=== PATIENT | male | born 1980 | race Caucasian/White ===

== ENCOUNTER → 2017-05-25 08:13 | Outpatient (CLI) | payer MEDICAID, SELFPAY ==
[2017-05-25 10:02] LABS: ALB/GLOB Ratio 1.2 RATIO (0.9-2.4); AST(SGOT) 27 U/L (15-37); Alanine Aminotransfer ALT/SGPT 28 U/L (16-61); Albumin, Serum 4.4 g/dL (3.2-5.0); Alkaline Phosphatase 59 U/L (45-117); Anion Gap 10 (5-15); BUN 12 mg/dL (7-18); BUN/Creat Ratio 10.8 RATIO (10-20); Calcium,Total 8.8 mg/dL (8.5-10.1); Chloride 107 mmol/L (98-107); Creatinine, Serum 1.11 mg/dL (0.70-1.30); EST Glomerular Filtration Rate 80 mL/min (>60); Est Glom Filt Rate - Afr Amer 97 mL/min (>60); Globulin 3.6 g/dL (2.2-4.2); Glucose 83 mg/dL (74-106); Potassium 4.5 mmol/L (3.5-5.1); Sodium Level 140 mmol/L (136-145)
[2017-05-26 04:15] LABS: HEPATITIS B SURFACE AG Negative (Negative); Hepatitis A AB, Total Negative (Negative); Hepatitis A IgM Antibody Negative (Negative); Hepatitis B Core AB IgM Negative (Negative); Hepatitis B Core Ab Total Negative (Negative); Hepatitis C Ab <0.1 s/co ratio (0.0-0.9)
[2017-05-26 09:23] LABS: Hep B Surface Antibodies Non Reactive (.)
== END ==
PROVIDERS: Family Provider Nurse Practitioner Family; PCP Nurse Practitioner Family; Visit Provider Nurse Practitioner Family
DX: R79.89 Other specified abnormal findings of blood chemistry (principal); E87.6 Hypokalemia; F10.20 Alcohol dependence, uncomplicated
CPT/HCPCS: 36415; 80053; 86704; 86705; 86706; 86708; 86709; 86803; 87340

== ENCOUNTER 2018-02-20 17:31 | Emergency (ER) | payer OTHER, BC, SELFPAY ==
[2018-02-20 17:32] VITALS: BP 146/95; PULSE 89; RESP 16; TEMP 36.6; O2SAT 100; BMI 21.5
[2018-02-20] MEDS: HYDROcodone Bitartrate/Apap 5/325 Tablet PO (18:46)
[2018-02-20 18:47] VITALS: PULSE 67; RESP 14; O2SAT 100
--- NOTE | 2018-02-20 18:55 | RAD_ITS ---
STUDY: X-RAY - UNILATERAL RIBS ( RIGHT ) WITH CHEST REASON FOR EXAM: Male, 37 years old. Right rib injury. TECHNIQUE - RIBS: 4 view(s) of the ribs. TECHNIQUE - CHEST: 1 COMPARISON: None. FINDINGS - RIBS: There is an acute, minimally displaced fracture of the right lateral fourth rib. FINDINGS - CHEST: Heart size is normal. Hilar and mediastinal shadows are unremarkable. There is no pleural effusion, pulmonary consolidation, or pneumothorax. RAD/Ribs Uni Min 3V w/PA Chest IMPRESSION: RIBS: Acute fracture of the right fourth rib. CHEST: Normal x-ray examination of the chest. Electronically Signed: Shonda Cueto MD at 19:23 EST Tel , Service support ,
--- NOTE | 2018-02-20 19:37 | ED.DCSUM_ITS ---
- ER Visit Summary Date of Service: 02/20/18 Chief Complaint: Rib pain History of Present Illness: The patient is a 37 M presents to the emergency department rib pain. The patient states that he injured himself at work a few days ago. He states that he got moved to a new job today. He was lifting a heavy piece of machinery at work and felt something pop in his right chest. Since then, he is been having increasing pain. He states it hurts to move and twist. He states he is never had pain like this before. He is not had any other trauma. He is been taking ibuprofen with little relief. Physical Examination: Vital signs reviewed General: Well-nourished, well-developed Head: Normocephalic, atraumatic Eyes: Pupils equal and reactive, extraocular muscles intact Neck, supple, no lymphadenopathy Heart: Regular rate and rhythm Respiratory: No distress, clear bilaterally, tenderness over the right lateral ribs at the fourth or fifth without step-off Abdomen: Soft, nontender, nondistended, no peritoneal signs Back: Nontender Extremities: Nontender, no edema, no cords Skin: Normal color no rash Neuro: Alert and oriented, no focal or lateralizing deficits Test Results: [] Emergency Department Course and Treatment: Patient presents to the emergency department rib pain after lifting. He is tender, but has no crepitus or step- off. He was given oral analgesics. X-rays do demonstrate an acute displaced right fourth rib fracture. There is no pneumothorax. At this time, I do feel the patient is safe for outpatient follow-up. He will be given analgesics. He will be placed on work restrictions. He will follow-up with [facility].] Treatment Plan: [] Disposition: Discharge Impression: 1. Acute right fourth rib fracture This note was generated with [employer] dictation software. It may contain incorrect words, spelling, and punctuation that were not noted in review of the chart prior to signing ED Disposition - Plan for ED Patient: Chief Complaint: Chest Other Instructions: ED Fx Rib Prescriptions: Hydrocodone Bitart/Apap 5-325 [[place] 5MG-325MG] 1 tab PO Q6H PRN PRN 3 Days #10 tab PRN Reason: Pain Referrals: [facility] [[facility] OF PHYSICIANS] -
--- OUTSIDE RECORDS SUMMARY | 2018-05-25 06:18 | XMS RPT_ITS ---
:1980 Author Organization OHIP Care Team Providers Name Role Phone Alber Hernandez [facility] Primary Care Unavailable Matt Melendez Attending Unavailable Alber Hernandez [facility] Attending Unavailable Alber Hernandez [facility] Referring Unavailable Alber Hernandez [facility] Primary Care Unavailable Alber Hernandez [facility] Attending Unavailable Thais Jesus Referring Unavailable Alber Hernandez [facility] Primary Care Unavailable Alber Hernandez [facility] Attending Unavailable Corniello, Estrella [facility] Referring Unavailable Alber Hernandez NP-Jessa Attending Unavailable Alber Hernandez NP-Jessa Primary Care Unavailable PROBLEMS PROBLEMS DATE TYPE CONDITION / CODE ATTENDING STATUS SOURCE 02/20/2018 Unknown S22.39XA - Fracture Matt Melendez Active [place] of one rib, Community unspecified side, Hospital initial encounter Repository for closed fracture / S22.39XA(ICD-10) 06/27/2017 Unknown D53.9 - Nutritional Hernandez, Alber Active [place] anemia, unspecified [facility] Community / D53.9(ICD-10) Hospital Repository 06/27/2017 Unknown F10.20 - Alcohol Hernandez, Alber Active [place] dependence, [facility] Community uncomplicated / Hospital F10.20(ICD-10) Repository 06/27/2017 Unknown F32.9 - Major HernandezAlber Active [place] depressive [facility] Community disorder, single Hospital episode, Repository unspecified / F32.9(ICD-10) PROCEDURES PROCEDURES No Procedure Records FoundRESULTS RESULTS EMERGENCY DEPARTMENT Observed: 02/20/2018 Status: F Source: [facility] SUMMARY 10:39 PM [facility] REPOSITORY [facility] Medical Records Department [address] [place] [address] Emergency Department Summary 02/20/18 193 MR#: [id number] Acct: [id number] Name: SUNIL DE LA CRUZ Rep #: [id number] : 1980 37 From: Matt Melendez MD PCP: Alber Hernandez NP Status: DEP ER - ER Visit Summary Date of Service: 02/20/18 Chief Complaint: Rib pain History of Present Illness: The patient is a 37 M presents to the emergency department rib pain. The patient states that he injured himself at work a few days ago. He states that he got moved to a new job today. He was lifting a heavy piece of machinery at work and felt something pop in his right chest. Since then, he is been having increasing pain. He states it hurts to move and twist. He states he is never had pain like this before. He is not had any other trauma. He is been taking ibuprofen with little relief. Physical Examination: Vital signs reviewed General: Well-nourished, well-developed Head: Normocephalic, atraumatic Eyes: Pupils equal and reactive, extraocular muscles intact Neck, supple, no lymphadenopathy Heart: Regular rate and rhythm Respiratory: No distress, clear bilaterally, tenderness over the right lateral ribs at the fourth or fifth without step-off Abdomen: Soft, nontender, nondistended, no peritoneal signs Back: Nontender Extremities: Nontender, no edema, no cords Skin: Normal color no rash Neuro: Alert and oriented, no focal or lateralizing deficits Test Results: [] Emergency Department Course and Treatment: Patient presents to the emergency department rib pain after lifting. He is tender, but has no crepitus or step-off. He was given oral analgesics. X-rays do demonstrate an acute displaced right fourth rib fracture. There is no pneumothorax. At this time, I do feel the patient is safe for outpatient follow-up. He will be given analgesics. He will be placed on work restrictions. He will follow-up with [facility].] Treatment Plan: [] Disposition: Discharge Impression: 1. Acute right fourth rib fracture This note was generated with Favor dictation software. It may contain incorrect words, spelling, and punctuation that were not noted in review of the chart prior to signing ED Disposition - Plan for ED Patient: Chief Complaint: Chest Other Instructions: ED Fx Rib Prescriptions: Hydrocodone Bitart/Apap 5-325 [[place] 5MG-325MG] 1 tab PO Q6H PRN PRN 3 Days #10 tab PRN Reason: Pain Referrals: [facility] [GROUP OF PHYSICIANS] - What to do if you have Problems For any increased pain, shortness of breath, bleeding, nausea or vomiting, chest pain, or any unexpected problems, contact your Primary Care Provider. Call [facility] ([phone]) or report to the closest Emergency Room. Call 911 if necessary. 02/20/18 5422 <Electronically signed by Matt Melendez MD> Date Matt Melendez MD Cosigner Signature (If Indicated): Date CC: Alber Hernandez [facility] RIBS UNI MIN 3V Observed: 02/20/2018 Status: F Source: [place] W/PA CHEST 6:32 PM [facility] REPOSITORY [facility] Imaging Services [address] [place] [address] Ribs Uni Min 3V w/PA Chest MR#: [id number] Acct: [id number] Name: SUNIL DE LA CRUZ Rep #: [id number] : 1980 M 37 From: Shonda Cueto MD PCP: Thais Jesus MD Status: PRE ER Study: Ribs Uni Min 3V w/PA Chest Date of Exam: 02/20/18 Exam# [id number] Ordering Dr: Matt Melendez MD STUDY: X-RAY - UNILATERAL RIBS ( RIGHT ) WITH CHEST REASON FOR EXAM: Male, 37 years old. Right rib injury. TECHNIQUE - RIBS: 4 view(s) of the ribs. TECHNIQUE - CHEST: 1 COMPARISON: None. FINDINGS - RIBS: There is an acute, minimally displaced fracture of the right lateral fourth rib. FINDINGS - CHEST: Heart size is normal. Hilar and mediastinal shadows are unremarkable. There is no pleural effusion, pulmonary consolidation, or pneumothorax. RAD/Ribs Uni Min 3V w/PA Chest IMPRESSION: RIBS: Acute fracture of the right fourth rib. CHEST: Normal x-ray examination of the chest. Electronically Signed: Shonda Cueto MD at 19:23 EST Tel , Service support , CC: Thais Jesus MD; Matt Melendez MD Ballet Teacher: Signed INTERNAL MEDICINE Observed: 10/20/2017 Status: F Source: [facility] OFFICE VISIT 8:49 AM [facility] REPOSITORY [facility] [address] [place] [address] [place] [address] OFFICE VISIT Date of Service: 10/19/17 MR#: [id number] Acct: [id number] Name: SUNIL DE LA CRUZ Rep #: [id number] : 1980 Provider: Abler Hernandez NP Age/Sex: 37/M Location: [facility] Status: Signed Intake Vital Signs10/19/17 Height 5 ft 7 in 10/19/17 Weight: 140 lb 10/19/17 Body Mass Index (BMI) 21.9 10/19/17 Blood Pressure 118/78 Intake Visit Reasons: fu, req MAY Chief Complaint: F/U on insomnia and anxiety Is patient in pain?: No Allergies tramadol Allergy (Verified 10/19/17 11:09) Other aspirin Adverse Reaction (Verified 10/19/17 11:09) Nausea nicotine patch Allergy (Severe, Uncoded 10/19/17 11:09) Hives Medications blood pressure monitor kit See Dose Instructions .ROUTE .MEDSUPPLY #1 ea 06/27/17 [Rx Confirmed 06/27/17] multivitamin tablet 1 tab PO QDAY #90 tab 06/27/17 [Rx Confirmed 10/19/17] bupropion HCl SR 150 mg tablet,12 hr sustained-release 150 mg PO BID #60 tab 10/19/17 [Rx Confirmed 10/19/17] buspirone 30 mg tablet See Label Instructions PO BID #60 tab 10/19/17 [Rx Confirmed 10/19/17] mirtazapine 15 mg tablet See Label Instructions PO QDAY #14 tab 10/19/17 [Rx Confirmed 10/19/17] PFSH Medical History Chronic bronchitis (Chronic) Family History Father Alcoholism Cancer prostate Hypertension COPD (chronic obstructive pulmonary disease) CVA (cerebral vascular accident) Myocardial infarction, Onset Age: 46 Mother COPD (chronic obstructive pulmonary disease) Anxiety Cancer bone blood clots Grandmother Alcoholism Brother Alcoholism Hypertension Asthma younger brother Sister Alcoholism Social History Smoking Status: Current every day smoker alcohol intake: former substance use type: does not use what type of physical activity do you participate in: none HPI HPI Chief Complaint: F/U on insomnia and anxiety Details: SUNIL DE LA CRUZ, is a 37 M who presents to the office today to follow-up on insomnia and anxiety. His past medical history consists of tobacco abuse, insomnia, chronic bronchitis, history of alcoholism, anxiety, depression, history of cannabis use. Patient stated that the dose of Remeron at 45 mg that he takes causes increased tiredness. He stated he does not take the Remeron until about 1:30- 2:00 in the morning because he works second shift. He stated he felt increased tiredness during the day, which he has since cut the 45 mg in half to take at bedtime. He started to decrease his Remeron about 1 1/2 months ago. He stated he had only sleep about 4-5 hours per night and feels more restless, but even with the decrease in remeron, still is tired throughout day. He does state that he drinks 2-3 20 ounce bottles of pop and usually the last intake of caffeine is about 10:30 at night. He stated that he has increased anxiety due to financial situations at home. He states he does take his buspirone routinely but does not seem to help his anxiety as much as it did before. He stated his anxiety increases his depression at times, but denies thoughts of harming self or others. Patient stated he discontinued his Chantix about 1- 1/2 months ago due to he felt a feeling of disorientation and when he smoked it made him feel very nauseated. He failed the patches previously. The patient otherwise denies any fever, chills, nausea, vomiting, shortness of breath, chest pain or pressure, palpitations, orthopnea, lower extremity edema, syncope or presyncopal episodes. ROS Const Constitutional: Positive for fatigue and abnormal sleep pattern; no chills, fever(s), frequent falls, malaise, weakness, sleep problems or change in appetite Eyes Eyes: No blurry vision, change in vision, double vision, discharge or visual disturbances ENT ENT: No abnormal hearing, ear pain, ear pressure, tinnitus or dizziness/vertigo Resp Respiratory: No cough, shortness of breath or wheezing Cardio Cardiology: No chest pain at rest, chest pain with exertion, shortness of breath, dyspnea on exertion, generalized swelling, irregular heart rhythm, lightheadedness, orthopnea, fast heart rate or palpitations Gastro GI: No abdominal pain, change in bowel habits, constipation, diarrhea, nausea/dyspepsia or vomiting Genitourinary Male: No difficulty urinating, burning urination, painful urination, urinary incontinence, urinary frequency, urinary urgency, urinary hesitancy, urinary retention, blood in urine, Frequent nighttime urination/ nocturia, sexual problems, testicle lump or testicle pain Musc Musculoskeletal: No joint pain, back pain, joint swelling, limited range of motion, muscle weakness, numbness or tingling Skin Skin: No change in skin color, itching, rash or wounds Breast Breast: No breast lump or breast pain Neuro Neurology: No frequent falls, weakness, abnormal hearing, numbness, tingling, unsteady gait/balance, dizziness, loss of vision, memory loss or visual disturbances Psych Psychiatric: No memory loss, Positive for anxiety, No change in appetite, Positive for depression, No Thoughts of harming yourself/Others, Positive for abnormal sleep pattern Endo Endocrine: Positive for fatigue; no heat intolerance, increased thirst/drinking, increased hunger or increased urination Aller/Imm Allergy/Immunologic: No wheezing, itchy eyes or seasonal allergy symptoms Shane/Lymp Hematologic/Lymphatic: No easy bleeding, easy bruising or enlarged lymph nodes Exam Const General: cooperative, comfortable, no acute distress Nutritional Appearance: average body habitus, well nourished Orientation: alert, oriented x3 Limitations: mental status not altered [facility] Head: normal to inspection Ears: hearing grossly normal bilaterally Nose: external nose normal Eyes General: appearance normal, both eyes and all related structures Resp Effort AND Inspection: normal respiratory effort, able to speak in complete sentences, normal respiratory pattern, symmetric chest movement, no audible wheezes, no cough Auscultation: Bilateral: Clear to Auscultation Cardio Palpation: normal PMI Rate: regular rate Heart Sounds: S1 normal, S2 normal, normal S1 and S2, no click, no gallops, no murmurs, no rubs GI Inspection: normal to inspection Auscultation: normal bowel sounds, no hyperactive bowel sounds, no hypoactive bowel sounds Palpation: soft, no hepatosplenomegaly Musc Musculoskeletal: No muscle weakness Neuro General: alert, awake, oriented x3, CN's II-XI intact bilaterally Cranial Nerves: PERRL, accommodation normal Cognition: normal cognition Speech: speech normal Gait: normal gait Motor: muscle tone normal throughout, strength 5/5 throughout Extrem General: normal to inspection, normal gait, no edema, no pedal edema Psych Appearance: grossly normal Mental Status: mental status grossly normal Affect: anxious affect Speech and Movement: speech and movement normal Attitude: cooperative Thought Process: normal Thought Content: normal Judgment: judgment good Assessment AND Plan 1. Anxiety F41.9 Plan Patient to continue buspirone and adjustments made to take 30 mg in the morning and 15 mg at bedtime. Medications Discontinued: 2. Insomnia G47.00 Plan Patient will be tapered off Remeron. Discussed sleep hygiene (limiting caffeine) and to take [id number] melatonin as needed. Has failed remeron in past. Given pts other medication adjustments may consider PRN trazodone in future. 3. Tobacco abuse Z72.0 Plan Discussed smoking cessation previously stopped Chantix a month and a half prior. patient will be started on bupropion 150 mg once a day 3 days then dose will be increased to BID. Discussed benefits of smoking cessation. 4. Depression F32.9 Plan Remeron being tapered and discontinued. Patient will continue buspirone as prescribed and bupropion as added for smoking cessation and hopefully will help with depression. Discussed red flag symptoms and when to seek urgent medical attention. Patient to follow-up as previously scheduled. Medications Discontinued: 5. Alcoholism /alcohol abuse F10.20 Plan Pt does continue to remain sober from alcohol. Plan Detail Other Medications New: bupropion HCl SR take daily for the first 150 mg PO BID three days, then increase to twice daily buspirone Take 30 mg in the morning and 15 mg (1/2 tab) at night Follow Up 6 weeks or sooner if needed Coding Level of Care Code Off vis,est,level 4 Diagnoses Anxiety F41.9 Insomnia G47.00 Tobacco abuse Z72.0 Depression F32.9 Alcoholism /alcohol abuse F10.20 10/20/17 0849 <Electronically signed by Alber GARBER> Date Alber GARBER Cosigner Signature: Date (if applicable) CC: INTERNAL MEDICINE Observed: 06/27/2017 Status: F Source: [place] OFFICE VISIT 12:05 PM [facility] [address] [place] [address] OFFICE VISIT Date of Service: 06/27/17 MR#: [id number] Acct: [id number] Name: SUNIL DE LA CRUZ Rep #: [id number] : 1980 Provider: Alber Hernandez NP Age/Sex: 37/M Location: [facility] Status: Signed Intake Vital Signs06/27/17 Height 5 ft 7 in Intake Visit Reasons: high BP needs 4pm or after,r/s from 06/06/17 Chief Complaint: elevated BP recently Is patient in pain?: No Allergies tramadol Allergy (Verified 03/07/17 18:39) Other aspirin Adverse Reaction (Verified 03/07/17 18:39) Nausea nicotine patch Allergy (Severe, Uncoded 06/27/17 11:10) Hives Medications buspirone 10 mg tablet 10 mg PO TID #90 tab 05/05/17 [Rx] blood pressure monitor kit See Dose Instructions .ROUTE .MEDSUPPLY #1 ea 06/27/17 [Rx Confirmed 06/27/17] mirtazapine 45 mg tablet 45 mg PO QHS #30 tab 06/27/17 [Rx Confirmed 06/27/17] multivitamin tablet 1 tab PO QDAY #90 tab 06/27/17 [Rx Confirmed 06/27/17] varenicline 0.5 mg (11)-1 mg (42) tablets in a dose pack See Label Instructions PO PER PKG DIR #53 tab 06/27/17 [Rx Confirmed 06/27/17] varenicline 1 mg tablet 1 mg PO BID 56 Days #112 tab 06/27/17 [Rx Confirmed 06/27/17] PFSH Medical History Chronic bronchitis (Chronic) Family History Father Alcoholism Cancer prostate Hypertension COPD (chronic obstructive pulmonary disease) CVA (cerebral vascular accident) Myocardial infarction, Onset Age: 46 Mother COPD (chronic obstructive pulmonary disease) Anxiety Cancer bone blood clots Grandmother Alcoholism Brother Alcoholism Hypertension Asthma younger brother Sister Alcoholism Social History Smoking Status: Current every day smoker alcohol intake: former substance use type: does not use what type of physical activity do you participate in: none HPI HPI Chief Complaint: elevated BP recently Details: SUNIL DE LA CRUZ, is a 37 M who presents to the office today for an acute complaint of elevated blood pressures. He is a past medical history as listed above which is significant for alcoholism, anxiety, depression, and insomnia. The patient states that over the past couple weeks at work when he checks his blood pressures it is been ranging 135-140s systolic over 80s diastolic. He is concerned that this is elevated for him. However today in the office his blood pressure is 120/72. He denies any symptoms of hypertension. He does state that he does not routinely check his blood pressures. His other complaint today is that he continues to smoke, he had an allergic reaction to the nicotine patch so he discontinued. He continues to smoke 1 pack per day. He is agreeable to trying Chantix. He also notes that he still has depressive symptoms, he states that the Remeron has helped with this, however seems to have worn off. The Remeron is helping with his insomnia as well. He denies any thoughts of harming self or others. The patient otherwise denies any fever, chills, nausea, vomiting, shortness of breath, chest pain or pressure, palpitations, orthopnea, lower extremity edema, syncope or presyncopal episodes. ROS Const Constitutional: No weight change, body ache, chills, fatigue, sleep problems, fever(s), change in appetite, snoring, weakness, frequent falls, headache(s) or excessive sweating Eyes Eyes: No change in vision, eye pain, light sensitivity or blurry vision ENT ENT: No headache(s), abnormal hearing, ear pain, tinnitus, nasal congestion, sore throat or neck pain Resp Respiratory: No snoring, cough, shortness of breath or wheezing Cardio Cardiology: No excessive sweating, chest pain at rest, chest pain with exertion, shortness of breath, dyspnea on exertion, palpitations, orthopnea or lightheadedness Gastro GI: No abdominal pain, change in bowel habits, constipation, diarrhea, vomiting, nausea/dyspepsia or cramping Genitourinary Male: No painful urination, urinary incontinence, urinary frequency, urinary urgency, blood in urine, testicle pain or other Musc Musculoskeletal: No neck pain, abnormal walking, joint pain, back pain, limited range of motion, numbness, tingling or muscle weakness Skin Skin: No redness, dry skin, itching, lesions, wounds or rash Neuro Neurology: No weakness, frequent falls, headache(s), abnormal hearing, abnormal walking, numbness, tingling, abnormal speech, dizziness or memory loss Psych Psychiatric: No change in appetite, No memory loss, No anxiety, No depression, No Thoughts of harming yourself/Others Endo Endocrine: No fatigue, excessive sweating, cold intolerance, increased thirst/drinking, heat intolerance, flushing or increased hunger Aller/Imm Allergy/Immunologic: No wheezing, itchy eyes, hives or seasonal allergy symptoms Shane/Lymp Hematologic/Lymphatic: No easy bleeding, easy bruising or enlarged lymph nodes Exam Const General: cooperative, comfortable, no acute distress Nutritional Appearance: average body habitus, well nourished Orientation: alert, oriented x3 Limitations: mental status not altered HENMT Head: normal to inspection Ears: hearing grossly normal bilaterally Nose: external nose normal Eyes General: appearance normal, both eyes and all related structures Resp Effort AND Inspection: normal respiratory effort, able to speak in complete sentences, normal respiratory pattern, symmetric chest movement, no audible wheezes, no cough Auscultation: Bilateral: Clear to Auscultation Cardio Palpation: normal PMI Rate: regular rate Heart Sounds: S1 normal, S2 normal, normal S1 and S2, no click, no gallops, no murmurs, no rubs Musc Musculoskeletal: No joint tenderness, decreased ROM or muscle weakness Skin General: no rashes or lesions noted, elasticity normal, turgor normal Lesions: no lesions Rashes: no rashes Neuro General: alert, awake, oriented x3, CN's II-XI intact bilaterally Speech: speech normal Gait: normal gait Motor: muscle tone normal throughout Extrem General: normal to inspection, normal gait, no edema, no pedal edema Psych Appearance: grossly normal Mental Status: mental status grossly normal Affect: normal affect Attitude: cooperative Thought Process: normal Assessment AND Plan 1. Elevated BP without diagnosis of hypertension R03.0 Plan His blood pressure is well controlled today in the office. Will give him a prescription for a blood pressure cuff to monitor his blood pressure daily at home. Discussed limiting salt in his diet. He will follow-up in 2 weeks or sooner if needed. 2. Insomnia G47.00 Plan Well-controlled on the mirtazapine. Continue 3. Depression F32.9 Plan Room for improvement, will increase the Remeron to 45 mg nightly. Discussed red leg symptoms that require urgent medical attention. No current thoughts of harming self or others. Medications Changed: 4. Anxiety F41.9 Plan He will continue with his BuSpar therapy, control at this time. 5. Alcoholism /alcohol abuse F10.20 Plan Patient's LFTs have returned to normal and he is no longer in the [facility] house for alcohol detox. He is doing well and states that he has completely refrained from drinking alcohol. He did have a degree of macrocytic anemia, most likely secondary to his alcohol intake. Will recheck a CBC and vitamin D and B12 prior to his next appointment follow-up in 6 weeks. Orders Orders: 6. Tobacco abuse Z72.0 Plan The patient failed the nicotine patch, will trial him on Chantix. Discussed how and when to take the medication and potential side effects. Discussed the importance of not consuming alcohol while taking the medication . Discussed that he needs to quit smoking within 7 days of starting medication. Patient verbalized understanding. Patient up for follow-up in 6 weeks or sooner if needed. This note was generated with Favor dictation software. It may contain incorrect words, spelling, and punctuation that were not noted in checking the note before signing. Plan Detail Other Orders Orders: Other Medications New: blood pressure monitor kit (Blood Pressure KiCheck blood pressure daily for elevated BP wi t) thout diagnosis of HTN I10 Follow Up 6 weeks or sooner if needed Coding Level of Care Code Off vis,est,level 4 Diagnoses Elevated BP without diagnosis of hypertension R03.0 Insomnia G47.00 Depression F32.9 Anxiety F41.9 Alcoholism /alcohol abuse F10.20 Tobacco abuse Z72.0 06/27/17 1205 <Electronically signed by Alber GARBER> Date Alber GARBER Cosigner Signature: Date (if applicable) CC: COMPREHENSIVE METABOLIC Collected: 05/25/2017 Status: F Source: [place] HEARD 6:30 AM [facility] REPOSITORY TYPE CODE TESTS RESULT OUT OF RANGE REFERENCE UNITS LAB L501.0100 74-106 mg/dL Normal GLU 83 Result Comment: Please note revised GLUCOSE reference range effective 2017. LAB L501.1000 7-18 mg/dL Normal BUN 12 LAB L501.1100 0.70-1.30 mg/dL Normal CREAT,SERUM 1.11 Result Comment: The validity of the calculated GFR AND GFRAA in patients over 70 years has not been determined. Clinical correlation is essential. LAB L501.1110 >60 mL/min Normal EST GFR 80 Result Comment: Non- GFR Calc LAB L501.1115 >60 mL/min Normal EST GFR - AA 97 Result Comment: GFR Calc LAB L501.1300 10-20 RATIO Normal BUN/CRE 10.8 LAB L501.1500 6.4-8.2 g/dL T Normal PROT 8.0 LAB L501.1800 3.2-5.0 g/dL Normal ALB 4.4 LAB L501.1950 2.2-4.2 g/dL Normal GLOB 3.6 LAB L501.2000 0.9-2.4 RATIO Normal A/G 1.2 LAB L501.2200 8.5-10.1 mg/dL CA Normal 8.8 LAB L501.4100 15-37 U/L Normal AST 27 LAB L501.4305 45-117 U/L Normal ALK P 59 LAB L501.4405 16-61 U/L Normal ALT 28 Result Comment: Please note revised ALT reference range effective 2017. LAB L501.4600 0.20-1.00 mg/dL Normal T BILI 0.60 LAB L501.5300 136-145 mmol/L Normal NA 140 LAB L501.5600 3.5-5.1 mmol/L Normal K 4.5 LAB L501.5900 98-107 mmol/L Normal CL 107 LAB L501.6100 21.0-32.0 mmol/L Normal CO2 23.0 LAB L501.6200 5-15 Normal GAP 10 Performed By: #### L500.4050 #### [facility] [address] [facility]. [place], [place], [id number] #### L3000.0700 #### [facility] (refer to report for specific site) refer to report for address and phone number HEPATITIS ABC PROFILE Collected: 05/25/2017 Status: F Source: ELIZABETH 6:30 AM [facility] REPOSITORY TYPE CODE TESTS RESULT OUT OF RANGE REFERENCE UNITS LAB L3100.0200 Negative Normal HEP A Negative IgM 6734 LAB L3100.0300 Negative Normal HEP A Negative AB,T.6726 LAB L3100.0400 Negative Normal HB Negative SURF AG LAB L3100.0440 Negative Normal HB Negative CORE [id number] LAB L3100.0460 Negative Normal HEP B Negative CORE,TOT LAB L3100.0510 . Normal Hep B Non Reactive Claudio AB Result Comment: Non Reactive: Inconsistent with immunity, less than 10 mIU/mL Reactive: Consistent with immunity, greater than 9.9 mIU/mL LAB L3100.0750 0.0-0.9 s/co ratio Normal HCV Ab <0.1 LAB L3100.0765 . Normal COMMENT Comment Result Comment: Non reactive HCV antibody screen is consistent with no HCV infection, unless recent infection is suspected or other evidence exists to indicate HCV infection. Performed at: [facility] [address] [id number] Pattern Grader Cutter: Gera Iverson PhD, Phone: [phone] Performed By: #### L500.4050 #### [facility]. [place], [place], [id number] #### L3000.0700 #### [facility] (refer to report for specific site) refer to report for address and phone number ALLERGIES ALLERGIES DATE TYPE / CODE NAME / CODE REACTION SEVERITY SOURCE 02/20/2018 Drug NSAIDS Upset Stomach Unknown [place] Allergy/[id number](S (Non-Steroidal [facility] NOM[facility]) Anti-Inflamma/ Hospital [id number](RXN Repository ORM) 10/19/2017 Drug aspirin/X25516 Nausea Unknown [place] Allergy/[id number](S 1587(RXNORM) [facility]) Hospital Repository 10/19/2017 Drug tramadol/F0060 Other Unknown [place] Allergy/785708392(S 53706(RXNORM) [facility]) Hospital Repository 10/19/2017 Miscellaneous nicotine patch Hives SV [place] Allergy/[id number]([facility]) Hospital Repository ENCOUNTERS ENCOUNTERS ADMIT/DISCHARGE ACCOUNT ADMITTING ENCOUNTER LOCATION SOURCE NUMBER CLASS 02/20/2018/ [id number] Emergency [place] [place] 8 6 [facility] ing:ED Repository 10/19/2017/ [id number] Ambulatory BMSBuilding:B [place] 8 8 [facility] Repository 06/27/2017/ [id number] Ambulatory BMSBuilding:B [place] 8 5 [facility] Repository 06/06/2017 [id number] Ambulatory BMSBuilding:B [place] 7 [facility] Repository 05/25/2017 [id number] Ambulatory [place] 4 [facility] ing:MFPLAB Repository PAYERS PAYERS ENCOUNTER GUARANTOR PAYER SUBSCRIBER SOURCE 02/20/2018 SUNIL A Primary SUNIL A [place] [id number] Insurance:SELF INS VOJTUSHDOB: [id number]: Repository [address]Mwm: [phone] [id number] [phone] () Date:2018-02-20 02/20/2018 Secondary SUNIL A [place] Insurance:ANTHEMPolic VOJTUSHDOB: Community y Number: [id number] Repository Date:[id number] [address]: 02/20/2018 Tertiary NOT GIVENUNK [place] Insurance:SELF PAY [facility] Number: Effective Repository Date:2018-02-20 10/19/2017 SUNIL A Primary SUNIL A [place] [id number] Insurance:ANTHEMPolic VOJTUSHDOB: [facility] DERRICK GARCIA y Number: [id number] [id number] Repository [address]Mes: [phone]) Date:1489-26-16[phone] (HP) [address], [place] [address]RM: 10/19/2017 Secondary NOT GIVENUNK [place] Insurance:SELF PAY [facility] Number: Effective Repository Date:2017-10-19 06/27/2017 SUNIL Stephens Primary SUNIL A [place] [id number] Insurance:CARESOURCEP VOJTUSHDOB: Community DERRICK JOSE delcid Number: [id number] [id number] Repository [address]Rth: ([phone]) Date:2017-06-06P O [phone] () [address]ATTN: [place] [address]JX: 06/27/2017 Secondary NOT GIVENUNK [place] Insurance:SELF PAY [facility] Number: Effective Repository Date:2017-06-26 06/06/2017 SUNIL A Primary SUNIL A [place] [id number] Insurance:CARESOURCEP VOJTUSHDOB: [facility] DERRICK delcid Number: [id number] [id number] Repository [address]Kep: ([phone]) Date:2017-05-17P O [phone] () [address]ATTN: [place] [address]ZS: 06/06/2017 Secondary NOT GIVENUNK [place] Insurance:SELF PAY [facility] Number: Effective Repository Date:2017-05-17 05/25/2017 SUNIL Stephens Primary SUNIL A [place] [id number] Insurance:CARESOURCEP VOJTUSHDOB: [facility] DERRICK delcid Number: [id number] [id number] Repository [address]Qrj: [phone]) Date:2017-05-23P O [phone] () [address]ATTN: [place] [address]NA: 05/25/2017 Secondary NOT GIVENUNK [place] Insurance:SELF PAY [facility]: Effective Repository Date:2017-05-23
== END 2018-02-20 19:50 | disposition home or self-care (01) ==
LOC: ED 19:27
PROVIDERS: Emergency Provider Emergency Medicine; Family Provider Nurse Practitioner Family; PCP Nurse Practitioner Family
DX: S22.31XA Fracture of one rib, right side, initial encounter for closed fracture (principal); X50.0XXA Overexertion from strenuous movement or load, initial encounter; Y93.9 Activity, unspecified; Y92.9 Unspecified place or not applicable; Z72.0 Tobacco use
CPT/HCPCS: 71101; 99283

== ENCOUNTER 2018-04-14 23:12 | Emergency (ER) | payer OTHER, BC, SELFPAY ==
[2018-04-14 23:13] VITALS: BP 147/91; PULSE 93; RESP 16; TEMP 36.7; O2SAT 99; BMI 23.3
--- NOTE | 2018-04-14 23:29 | ED.VISSUMM ---
- ER Visit Summary Date of Service: 04/14/18 Chief Complaint: Chest pain History of Present Illness: The patient is a 37 M who presents with chest pain. He was at work. He was dumping a box of inserts that he estimates weighs 50-55 pounds. He denies feeling any pop but developed sudden burning right-sided chest pain. It is tender. It is worse with a deep breath. He states it feels similar to prior rib fractures. No shortness of breath. He denies recent illness. Physical Examination: Afebrile vitals are stable No distress Heart regular rate and rhythm Patient has a right chest tenderness along the lateral and anterior upper chest no crepitus Abdomen soft Test Results: Rib series with PA chest shows healing right fourth rib fracture. No pneumothorax. No new fracture. Emergency Department Course and Treatment: Patient advised on supportive care. He was discharged. He understands to return for new or worsening symptoms. Treatment Plan: [] Disposition: Discharge Impression: Right chest wall strain This note was generated with [employer] dictation software. It may contain incorrect words, spelling, and punctuation that were not noted in review of the chart prior to signing ED Disposition - Plan for ED Patient: Referrals: Alber Hernandez, ANALYTICAL LABORATORY TECHNICIAN-C [Primary Care Provider] -
--- NOTE | 2018-04-14 23:40 | RAD_ITS ---
HISTORY: BURNING PAIN IN CHEST, SOB. HX OF RT 4TH RIB FRACTURE ON 02/20/18 COMPARISON: 02/20/2018 FINDINGS: XR right ribs with PA chest 5 views Healing fracture with fracture callus of the axillary right fourth rib. Bony union appears solid. No new or acute fracture seen. No pneumothorax or pleural fluid collection. An accompanying PA view of the chest shows no evidence of acute disease. No mediastinal widening. Normal heart size. RAD/Ribs Uni Min 3V w/PA Chest IMPRESSION: 1. Healing fracture of the right fourth rib and bony union appears solid. 2. No pneumothorax or new fracture. No acute chest disease identified. at 0007 Reported and signed by: Enrique Kothari MD Electronically Signed: Enrique Kothari, at 0:06 EST Tel , Service support ,
--- NOTE | 2018-04-15 00:17 | ED.DEP ---
ED Disposition - Plan for ED Patient: Instructions: ED Strain Chest Wall Referrals: Alber Hernandez, [facility] [Primary Care Provider] - [facility] [GROUP OF PHYSICIANS] -
[2018-04-15 00:23] VITALS: BP 131/68; PULSE 72; RESP 18; O2SAT 97
--- NOTE | 2018-04-15 00:24 | ED.RN ---
THIS NURSE REVIEWED D/C INSTRUCTIONS WITH PT. PT VERBALIZED UNDERSTANDING OF INSTRUCTIONS. PT DENIES FURTHER NEEDS OR QUESTIONS AT THIS TIME. PT AMBULATES FROM ROOM ON OWN WITHOUT ASSISTANCE FROM STAFF
== END 2018-04-15 00:25 | disposition home or self-care (01) ==
LOC: ED 23:57
PROVIDERS: Emergency Provider Emergency Medicine; Family Provider Nurse Practitioner Family; PCP Nurse Practitioner Family
DX: S29.011A Strain of muscle and tendon of front wall of thorax, initial encounter (principal); X50.0XXA Overexertion from strenuous movement or load, initial encounter; Y93.9 Activity, unspecified; Y92.9 Unspecified place or not applicable; F41.9 Anxiety disorder, unspecified; Z79.899 Other long term (current) drug therapy; Z72.0 Tobacco use
CPT/HCPCS: 71101; 99282

== ENCOUNTER → 2018-05-02 11:53 | Outpatient (CLI) | payer BC, SELFPAY ==
[2018-05-02 09:16] VITALS: BMI 22.2
--- NOTE | 2018-05-02 12:20 | RAD_ITS ---
STUDY: X-RAY CHEST REASON FOR EXAM: Male, 37 years old. Coughing up blood times several days, current smoker. TECHNIQUE: PA and lateral views of the chest. COMPARISON: Frontal chest x-ray included with rib series April 14, 2018. FINDINGS: The lungs are clear and expanded. There is no demonstrated pleural abnormality. Normal size heart. Normal mediastinum and oscar. Normal visualized pulmonary arteries. Normal visualized aortic arch and descending thoracic aorta. There is a slight lordosis of the thoracic spine the lends to an overall narrowing of the AP diameter of the chest. Normal visualized ribs, clavicles, and shoulders. There is no demonstrated abnormality of the visualized soft tissue structures of the upper abdomen. RAD/Chest PA and Lateral IMPRESSION: No acute cardiopulmonary disease. Electronically Signed: Archie Haas, at 13:13 EST , Service support ,
[2018-05-02 12:23] LABS: Absolute Lymphocyte Count 1.97 X10^3/ul (0.83-4.51); Absolute Neutrophil Count 3.7 X10^3/uL (2.0-7.7); Basophil# 0.05 X10^3/uL; Basophil% 0.7 % (0-1); Eosinophil# 0.33 X10^3/uL; Eosinophils% 4.8 % (0-5); Hematocrit 44.3 % (40-54); Hemoglobin 14.8 g/dl (13.0-16.5); Lymphocyte # 1.97 X10^3/ul (4.0); Lymphocyte % 28.8 % (19-41); Mean Corp Hgb Conc 33.4 g/gl (32-36); Mean Corpuscular Hgb 33.9 pg (27.0-32.0); Mean Corpuscular Volume 101.6 fL (80-94); Mean Platelet Vol. 10.1 fl (6.2-12.0); Monocyte# 0.78 X10^3/uL; Monocyte% 11.4 % (0-10); Neutrophil % 54.2 % (47-70); Platelet Count 316 K/mm3 (150-450); RBC Distribution Width CV 12.4 % (11.6-14.6); RBC Distribution Width SD 45.6 fl (35.1-43.9); Red Blood Count 4.36 M/mm3 (4.6-6.2); White Blood Count 6.8 K/mm3 (4.4-11.0)
[2018-05-02 12:28] LABS: POSITIVE COUNT NO; POSITIVE DIFFERENTIAL NO; POSITIVE MORPHOLOGY NO
== END ==
PROVIDERS: Family Provider Nurse Practitioner Family; PCP Nurse Practitioner Family; Referring Provider Nurse Practitioner Family; Visit Provider Nurse Practitioner Family
DX: K92.0 Hematemesis (principal)
CPT/HCPCS: 36415; 71046; 85025

== ENCOUNTER → 2018-07-19 | Outpatient (CLI) | payer BC, SELFPAY ==
[2018-07-19 11:20] VITALS: BMI 22.2
[2018-07-19 12:36] LABS: Hematocrit 42.4 % (40-54); Hemoglobin 14.5 g/dl (13.0-16.5); Mean Corp Hgb Conc 34.2 g/gl (32-36); Mean Corpuscular Hgb 34.6 pg (27.0-32.0); Mean Corpuscular Volume 101.2 fL (80-94); Mean Platelet Vol. 9.8 fl (6.2-12.0); Platelet Count 298 K/mm3 (150-450); RBC Distribution Width CV 12.9 % (11.6-14.6); RBC Distribution Width SD 47.9 fl (35.1-43.9); Red Blood Count 4.19 M/mm3 (4.6-6.2); White Blood Count 5.8 K/mm3 (4.4-11.0)
[2018-07-19 12:37] LABS: Scan Indicated on CBC? Y/N NO
[2018-07-19 12:59] LABS: ALB/GLOB Ratio 1.4 RATIO (0.9-2.4); AST(SGOT) 26 U/L (15-37); Alanine Aminotransfer ALT/SGPT 24 U/L (16-61); Albumin, Serum 4.2 g/dL (3.2-5.0); Alkaline Phosphatase 67 U/L (45-117); Amylase 58 U/L (25-115); Anion Gap 7 (5-15); BUN 9 mg/dL (7-18); BUN/Creat Ratio 10.3 RATIO (10-20); Calcium,Total 8.5 mg/dL (8.5-10.1); Chloride 110 mmol/L (98-107); Creatinine, Serum 0.88 mg/dL (0.70-1.30); EST Glomerular Filtration Rate 104 mL/min (>60); Est Glom Filt Rate - Afr Amer 126 mL/min (>60); Globulin 3.1 g/dL (2.2-4.2); Glucose 73 mg/dL (74-106); Lipase 134 U/L (73-393); Potassium 3.7 mmol/L (3.5-5.1); Protein, Total 7.3 g/dL (6.4-8.2); Sodium Level 142 mmol/L (136-145)
[2018-07-19 13:10] LABS: Vitamin B12 753 pg/mL (211-911)
[2018-07-20 13:48] LABS: Erythrocyte Sedimentation Rate < 1 mm/hr (0-15)
[2018-07-20 16:07] LABS: Folate, RBC (Hct) Test 40.7 % (37.5-51.0)
[2018-07-21 14:58] LABS: Folates, RBC Test 764 ng/mL (>498)
== END | disposition home or self-care (01) ==
LOC: BIMLAB 11:51
PROVIDERS: Family Provider Nurse Practitioner Family; PCP Internal Medicine; Visit Provider Nurse Practitioner Family
DX: R11.2 Nausea with vomiting, unspecified (principal); F10.20 Alcohol dependence, uncomplicated; D53.9 Nutritional anemia, unspecified
CPT/HCPCS: 36415; 80053; 82150; 82607; 82747; 83690; 83921; 85014; 85027; 85652

== ENCOUNTER → 2018-07-27 | Outpatient (CLI) | payer BC, SELFPAY ==
[2018-07-19 11:46] VITALS: BMI 22.2
--- NOTE | 2018-07-27 08:08 | RAD_ITS ---
STUDY: AIR-CONTRAST UPPER GI SERIES. REASON FOR EXAM: Male, 38 years old. Weight loss. Nausea and vomiting. FLUOROSCOPY TIME (if supplied): (0:45) minutes/seconds. 16 spot images were obtained. TECHNIQUE: The patient ingested barium. Multiple images of the esophagus, stomach and duodenum were obtained. COMPARISON: None. FINDINGS: The esophagus unremarkable. There is no evidence of esophageal obstruction. There is no evidence of gastroesophageal reflux. No mass lesion is seen. The stomach and duodenum are unremarkable. There is no evidence of ulceration. No mass lesion is present. RAD/Upper GI w/BA Swallow IMPRESSION: Unremarkable air-contrast upper GI series. Electronically Signed: Ray Zuñiga, at 11:48 EDT , Service support ,
== END | disposition home or self-care (01) ==
LOC: RAD 08:07
PROVIDERS: Family Provider Nurse Practitioner Family; PCP Nurse Practitioner Family; Referring Provider Nurse Practitioner Family; Visit Provider Nurse Practitioner Family
DX: R11.2 Nausea with vomiting, unspecified (principal); F10.20 Alcohol dependence, uncomplicated
CPT/HCPCS: 74246

== ENCOUNTER → 2018-11-14 11:42 | Outpatient (CLI) | payer BC, SELFPAY ==
[2018-11-14 11:36] VITALS: BMI 21.1
--- NOTE | 2018-11-14 11:44 | RAD_ITS ---
STUDY: X-RAY - RIGHT SHOULDER REASON FOR EXAM: Pain. TECHNIQUE: 4 view(s) of the shoulder. COMPARISON: None. FINDINGS: Normal glenohumeral articulation. There is narrowing of the acromioclavicular joint. Normal acromion. Normal humeral head and visualized proximal humerus. The soft tissue structures are unremarkable. Normal visualized pulmonary apex. RAD/Shoulder min 2 Views IMPRESSION: Acromioclavicular arthrosis. Electronically Signed: Sean Deleon MD at 12:33 EDT Tel , Service support ,
== END ==
LOC: HPRAD 11:43
PROVIDERS: Family Provider Internal Medicine; PCP Internal Medicine; Referring Provider Physician Assistant; Visit Provider Physician Assistant
DX: S46.911A Strain of unspecified muscle, fascia and tendon at shoulder and upper arm level, right arm, initial encounter (principal)
CPT/HCPCS: 73030

== ENCOUNTER 2019-01-07 12:02 | Emergency (ER) | payer SELFPAY ==
[2018-11-27 10:52] VITALS: BMI 20.8
[2019-01-07 12:04] VITALS: BP 124/89; PULSE 94; RESP 17; TEMP 36.8; O2SAT 99; BMI 21.7
--- NOTE | 2019-01-07 12:30 | RAD_ITS ---
STUDY: X-RAY CHEST REASON FOR EXAM: Male, 38 years old. Chest pressure. Questionably weakness and numbness. TECHNIQUE: PA and lateral views of the chest. COMPARISON: Comparison is made with prior study May 02, 2018. FINDINGS: EKG electrodes are seen. Hyperinflation. Decreased bronchovascular markings in both lungs suggestive of emphysematous changes. There is no demonstrated pleural abnormality. Normal size heart. Normal mediastinum and oscar. Normal visualized pulmonary arteries. Normal visualized aortic arch and descending thoracic aorta. Normal visualized thoracic spine. Normal visualized ribs, clavicles, and shoulders. There is no demonstrated abnormality of the visualized soft tissue structures of the upper abdomen. RAD/Chest PA and Lateral IMPRESSION: Hyperinflation. Electronically Signed: Ray Zuñiga, at 13:37 EST , Service support ,
--- NOTE | 2019-01-07 12:30 | EKG12_ITS ---
Test Reason : CP Blood Pressure : / mmHG Vent. Rate : 078 BPM Atrial Rate : 078 BPM P-R Int : 126 ms QRS Dur : 080 ms QT Int : 360 ms P-R-T Axes : 052 073 047 degrees QTc Int : 410 ms Normal sinus rhythm with sinus arrhythmia Normal ECG Confirmed by TO RODRIGUEZ, BELEN ([id number]), newspaper editor KENY SAM ([id number]) on 01/09/2019 11:04:42 AM Referred By: MIGUELITO Confirmed By:BELEN ARIZA MD
--- NOTE | 2019-01-07 12:42 | ED.VIS.GEN ---
History of Present Illness Chief Complaint: Chest Pain Informant: Patient Context: Sudden Onset Current Severity: Mild Maximum Severity: Severe Narrative: Patient is a 38-year-old male with history of anxiety and GERD presenting with an episode of chest pain. Patient states that 30 minutes prior to arrival he was laying in bed when suddenly he felt that he had a pressure and squeezing sensation in the center of his chest/epigastric region. Patient is well this was going on he felt very short of breath and was breathing quickly. He felt that his whole face was numb and he is tingling in his bilateral hands. He felt that he could move his left hand and started sweating. He states the episode lasted for about 3 minutes however he is continued to feel lightheaded and have the epigastric/lower chest pain. Patient states the epigastric pain is sharp but does not radiate. He started feeling lightheaded last night and developed vomiting and having diarrhea. Patient states he had about 4 episodes each of vomiting and diarrhea. He denies any blood in either. He states he was drinking alcohol last night but not in excess. He denies any illicit drug use. He does admit to tobacco use. He denies any history of surgeries or other medical history. States he does have a history of anxiety but this feels different than his normal panic attacks. Past Medical History - Allergies and Home Meds Allergies/Adverse Reactions: Allergies tramadol Allergy (Verified 01/07/19 12:04) Other aspirin Adverse Reaction (Verified 01/07/19 12:04) Nausea NSAIDS (Non-Steroidal Anti-Inflamma Adverse Reaction (Verified 01/07/19 12:04) Upset Stomach nicotine patch Allergy (Severe, Uncoded 01/07/19 12:04) Hives Primary Care Physician: Thais Jesus MD [Primary Care Provider] - Surgical History: - Smoking Status: Current every day smoker - Family History Maternal Family History: Family History (Last Reviewed 11/27/18 @ 10:51 by Alecia Agrawal) Father Alcoholism Cancer Hypertension COPD (chronic obstructive pulmonary disease) CVA (cerebral vascular accident) Myocardial infarction, Onset Age: 46 Mother COPD (chronic obstructive pulmonary disease) Anxiety Cancer blood clots Grandmother Alcoholism Brother Alcoholism Hypertension Asthma Sister Alcoholism Family History: Reports: Cancer - bone Paternal Family History: Family History (Last Reviewed 11/27/18 @ 10:51 by Alecia Agrawal) Father Alcoholism Cancer Hypertension COPD (chronic obstructive pulmonary disease) CVA (cerebral vascular accident) Myocardial infarction, Onset Age: 46 Mother COPD (chronic obstructive pulmonary disease) Anxiety Cancer blood clots Grandmother Alcoholism Brother Alcoholism Hypertension Asthma Sister Alcoholism Family History: Reports: Cancer - colon Sibling Family History: Family History (Last Reviewed 11/27/18 @ 10:51 by Alecia Agrawal) Father Alcoholism Cancer Hypertension COPD (chronic obstructive pulmonary disease) CVA (cerebral vascular accident) Myocardial infarction, Onset Age: 46 Mother COPD (chronic obstructive pulmonary disease) Anxiety Cancer blood clots Grandmother Alcoholism Brother Alcoholism Hypertension Asthma Sister Alcoholism Family History: Reports: - - alcoholism Physical Exam Vital Signs/Narrative: Vital Signs Temp Pulse Resp BP Pulse Ox 01/07/19 12:04 98.2 F 94 17 124/89 H 99 Inital Vital Signs reviewed: Yes General: Well nourished, Well developed, No Acute Distress Head: Normocephalic, Atraumatic Eyes: Perrl, EOMI ENT: Moist mucous membranes, No rhinorrhea Neck: Supple, Nontender Cardiovascular: Regular rate, Regular rhythm, No murmurs Respiratory: No distress, CTA bilaterally, Chest nontender Abdomen: Soft, Nondistended, Normal bowel sounds, Tender - Epigastric, mild. Negative for: Guarding, Rebound tenderness Back: Nontender, Normal Inspection. Negative for: CVA tenderness Extremities: Nontender, No edema Skin: Normal color, No rash Neurological: Alert, Oriented x3, Cranial nerves II-XII grossly intact, Normal Strength, Normal Sensation Psychological: Normal affect, Normal Mood Diagnostic/Tx/Re-eval Chest X-Ray - ED: 2 View, Read by ED Physician, Read by Radiologist, No Acute Disease Clinical Impression(s) from Imaging Studies Chest X-Ray 01/07/19 12:30 IMPRESSION: Hyperinflation. Electronically Signed: Ray Zuñiga, at 13:37 EST , Service support , Laboratory Data 01/07/19 01/07/19 01/07/19 12:40 12:40 13:30 WBC 10.2 RBC 4.03 L Hgb 14.2 Hct 40.0 MCV 99.3 H MCH 35.2 H MCHC 35.5 RDW Std Deviation 44.6 H RDW Coeff of Lexie 12.1 Plt Count 298 MPV 9.7 Immature Gran % (Auto) 0.500 Neut % (Auto) 74.4 H Lymph % (Auto) 14.8 L [place] % (Auto) 8.3 Eos % (Auto) 1.2 Baso % (Auto) 0.8 Absolute Neuts (auto) 7.6 Absolute Lymphs (auto) 1.51 Nucleated RBC % 0 Sodium 140 Potassium 3.7 Chloride 107 Carbon Dioxide 25.0 Anion Gap 8 BUN 10 Creatinine 0.87 Estim Creat Clear Calc 101.44 Est GFR (MDRD) Af Amer 128 Est GFR (MDRD) Non-Af 106 BUN/Creatinine Ratio 11.5 Glucose 93 Calcium 9.3 Total Bilirubin 0.70 Direct Bilirubin 0.19 AST 43 H ALT 53 Alkaline Phosphatase 93 Total Protein 7.2 Albumin 4.2 Globulin 3.0 Lipase 84 Urine Color Yellow Urine Clarity Clear Urine pH 9.0 Ur Specific [place] 1.015 Urine Protein 30 H Urine Glucose (UA) Normal Urine Ketones 5 H Urine Occult Blood Negative Urine Nitrite Negative Urine Bilirubin Negative Urine Urobilinogen Normal Ur Leukocyte Esterase 25 H Urine RBC 0 SEEN Urine WBC 0-5 SEEN Ur Squamous Epith Cells 0-5 SEEN Urine Bacteria 0 SEEN Urine Mucus 0 SEEN - Rhythm Strip Rhythm Strip: Sinus Rhythm Rate: 78 Ectopy: None - EKG Initial EKG Interpretation: Sinus Rhythm, - - Sinus rhythm at a rate of 78 Normal intervals Normal axis Normal ST segments Poor baseline secondary to artifact - Medical Decision Making Patient is evaluated for an episode of shortness of breath and chest pain. He has epigastric pain. Patient's episode sounds like he might of had a panic attack and likely carpopedal spasm from hyperventilating. He does have a history of anxiety. He is hemodynamically stable. He has a normal EKG. Cardiac work-up as well as electrolytes are all grossly normal. No evidence of pancreatitis or other inferior abdominal pathology. Chest x-ray is normal. Patient does have 5 ketones in his urine so he might of had a component of dehydration given his recent vomiting and diarrhea. I suspect his stomach discomfort is more from without vomiting and his acid reflux. I do not think is referred cardiac pain at this time. Patient is PE RC negative. He is discharged home with a course of Zofran. He is instructed to follow-up with his primary care doctor for further evaluation. He is counseled on signs and symptoms requiring return to emergency room. He verbalizes agreement understand this plan. Discharged home in stable condition. ED Disposition - Plan for ED Patient: Disposition: Home or Assisted Living Diagnosis: Chest pain, Dehydration, Nausea vomiting and diarrhea Instructions: Self-Care for Vomiting and Diarrhea, CHEST PAIN, Uncertain Cause Prescriptions: Ondansetron [Zofran Odt] 4 mg PO Q8H PRN PRN #15 tab PRN Reason: Nausea Prescription Printed Referrals: Thais Jesus MD [Primary Care Provider] - Additional Instructions: Keep your follow-up appointment with your primary care doctor. Return to the emergency room with worsening symptoms. Drink plenty of fluids to prevent dehydration.
[2019-01-07 12:48] LABS: Absolute Lymphocyte Count 1.51 X10^3/uL (0.83-4.51); Absolute Neutrophil Count 7.6 X10^3/uL (2.0-7.7); Basophil# 0.08 X10^3/uL; Basophil% 0.8 % (0-1); Eosinophil# 0.12 X10^3/uL; Eosinophils% 1.2 % (0-5); Hemoglobin 14.2 g/dL (13.0-16.5); Lymphocyte # 1.51 X10^3/ul (4.0); Lymphocyte % 14.8 % (19-41); Mean Corp Hgb Conc 35.5 g/dL (32-36); Mean Corpuscular Hgb 35.2 pg (27.0-32.0); Mean Corpuscular Volume 99.3 fL (80-94); Mean Platelet Vol. 9.7 fl (6.2-12.0); Monocyte# 0.84 X10^3/uL; Monocyte% 8.3 % (0-10); NRBC Flagged by Analyzer 0 % (0-5); Neutrophil # 7.57 X10^3/uL (2.7-7.7); Neutrophil % 74.4 % (47-70); Platelet Count 298 K/mm3 (150-450); RBC Distribution Width CV 12.1 % (11.6-14.6); RBC Distribution Width SD 44.6 fl (35.1-43.9); Red Blood Count 4.03 M/mm3 (4.6-6.2); White Blood Count 10.2 K/mm3 (4.4-11.0)
[2019-01-07] MEDS: Ondansetron 4 MG/2 ML Vial IV (12:57)
[2019-01-07] MEDS: 0.9% Normal Saline 1,000 ML 1000 ML IV (12:57)
[2019-01-07 13:00] VITALS: BP 127/81; PULSE 62; PULSE 66; RESP 13; RESP 15; TEMP 37.2; O2SAT 100; O2SAT 99
[2019-01-07 13:04] LABS: AST(SGOT) 43 U/L (15-37); Alanine Aminotransfer ALT/SGPT 53 U/L (16-61); Albumin, Serum 4.2 g/dL (3.2-5.0); Alkaline Phosphatase 93 U/L (45-117); Anion Gap 8 (5-15); BUN 10 mg/dL (7-18); BUN/Creat Ratio 11.5 RATIO (10-20); Bilirubin, Direct 0.19 mg/dL (0.00-0.30); Calcium,Total 9.3 mg/dL (8.5-10.1); Chloride 107 mmol/L (98-107); Creatinine, Serum 0.87 mg/dL (0.70-1.30); EST Glomerular Filtration Rate 106 mL/min (>60); Est Glom Filt Rate - Afr Amer 128 mL/min (>60); Estimated Creatinine Clearance 101.44 ml/min; Glucose 93 mg/dL (74-106); Lipase 84 U/L (73-393); Potassium 3.7 mmol/L (3.5-5.1); Protein, Total 7.2 g/dL (6.4-8.2); Sodium Level 140 mmol/L (136-145)
[2019-01-07 14:23] LABS: Bacteria 0 SEEN /hpf (None Seen); Mucous, Urine 0 SEEN /hpf (<or=2+); Red Blood Cells-Urine 0 SEEN /hpf (0-5)
[2019-01-07 14:27] LABS: Color, Urine Yellow (Yellow); Glucose, Dipstick Normal (Normal); Ketone-Dipstick 5 mg/dl (Negative); Leukocyte Esterase-Dipstick 25 /ul (Negative); Nitrite-Dipstick Negative (Negative); Occult Blood-Urine Negative /ul (Negative); Protein-Dipstick 30 mg/dl (Negative); Specific Gravity, Urine 1.015 (1.002-1.030); Urine Bilirubin Dipstick Negative (Negative); Urine Clarity Clear (Clear); Urine Urobilinogen Normal (Normal)
[2019-01-07 14:31] LABS: Squamous Epithelial Cells - UA 0-5 SEEN /hpf (0-5); White Blood Cells 0-5 SEEN /hpf (0-5)
[2019-01-07 15:58] VITALS: BP 124/87; PULSE 59; RESP 18; O2SAT 100
== END 2019-01-07 16:00 | disposition home or self-care (01) ==
PROVIDERS: Emergency Provider Emergency Medicine; Family Provider Internal Medicine; PCP Internal Medicine
DX: R07.89 Other chest pain (principal); R06.02 Shortness of breath; R20.2 Paresthesia of skin; E86.0 Dehydration; R11.2 Nausea with vomiting, unspecified; R19.7 Diarrhea, unspecified; K21.9 Gastro-esophageal reflux disease without esophagitis; F41.9 Anxiety disorder, unspecified; Z79.899 Other long term (current) drug therapy; F17.200 Nicotine dependence, unspecified, uncomplicated
CPT/HCPCS: 71046; 80048; 80076; 81001; 83690; 85025; 93005; 96361; 96374; 99285; J7030; A4216; J2405

== ENCOUNTER → 2019-08-05 08:55 | Outpatient (CLI) | payer OTHER, SELFPAY ==
[2019-06-19 10:08] VITALS: BMI 21.7
--- NOTE | 2019-08-05 08:55 | RAD_ITS ---
STUDY: X-RAY - RIGHT WRIST REASON FOR EXAM: Male, 39 years old. CYST OVER WRIST X 5 MONTHS TECHNIQUE: 3 view(s) of the wrist were obtained. COMPARISON: None. FINDINGS: Normal visualized distal radius and ulna. Normal radiocarpal articulation. Normal distal radioulnar articulation. Normal carpal bones. Normal carpal articulations. Normal carpometacarpal articulation of the thumb. Normal second through fifth carpometacarpal articulations. Normal visualized metacarpal bones. The soft tissue structures are unremarkable. RAD/Wrist min 3 Views IMPRESSION: Normal x-ray examination of the wrist. Electronically Signed: Archie Knowles MD at 17:17 EDT , Service support ,
== END ==
LOC: HPRAD 08:55
PROVIDERS: PCP Internal Medicine; Referring Provider Orthopaedic Surgery; Visit Provider Orthopaedic Surgery
DX: M67.431 Ganglion, right wrist (principal)
CPT/HCPCS: 73110

== ENCOUNTER 2019-09-13 14:17 | Emergency (ER) | payer OTHER, SELFPAY ==
[2019-08-05 09:13] VITALS: BMI 21.7
[2019-09-13 14:18] VITALS: BP 139/92; PULSE 70; RESP 13; TEMP 36.9; O2SAT 99; BMI 22.8
[2019-09-13 14:21] VITALS: BP 139/92; PULSE 64; RESP 18; O2SAT 100
--- NOTE | 2019-09-13 14:30 | ED.RN ---
pt asked me to call Domenic (brother) and give update. phone number [phone]. chris diaz [phone]
--- NOTE | 2019-09-13 14:40 | EKG12_ITS ---
Test Reason : CP Blood Pressure : / mmHG Vent. Rate : 061 BPM Atrial Rate : 061 BPM P-R Int : 120 ms QRS Dur : 086 ms QT Int : 398 ms P-R-T Axes : 037 068 048 degrees QTc Int : 400 ms Normal sinus rhythm Normal ECG Confirmed by DUNIA RODRIGUEZ, DEL ([id number]), graphic editor KENY SAM ([id number]) on 09/16/2019 8:26:20 AM Referred By: BB Confirmed By:DEL DUQUE MD
--- NOTE | 2019-09-13 14:41 | ED.DCSUM_ITS ---
History of Present Illness Chief Complaint: Chest Pain Informant: Patient Narrative: Patient is a 39-year-old male with a past medical history of anxiety who presents to the emergency department for chest discomfort. He states that this started at lunch today. For 45 minutes he felt a very tight squeezing sensation substernally. He felt like his arm was starting to go numb. He had tingling around his lips. He has had this before and had a work-up done which was negative. He is currently denying any chest discomfort. He still has a little bit of the tingling sensation around his lips. He did feel short of breath during that episode but this has since resolved as well. Denies any recent illnesses including any cough, cold, congestion. Denies any fevers or chills. No nausea/vomiting during the episode. Denies any abdominal pain or back pain now. He does smoke cigarettes and drinks alcohol daily. He is he does have a family history of coronary artery disease. He currently does not know any aggravating or relieving factors for his symptoms. He has not tried taking anyt dana for this. He denies any swelling or pain in his calves. No history of DVT/PE. No prolonged periods of immobility. Past Medical History - Allergies and Home Meds Allergies/Adverse Reactions: Allergies tramadol Allergy (Verified 09/13/19 14:18) Other aspirin Adverse Reaction (Verified 09/13/19 14:18) Nausea NSAIDS (Non-Steroidal Anti-Inflamma Adverse Reaction (Verified 09/13/19 14:18) Upset Stomach nicotine patch Allergy (Severe, Uncoded 09/13/19 14:18) Hives Primary Care Physician: Thais Jesus MD [STAFF PHYSICIAN] - Prior records reviewed: Yes Past Medical History: - - Anxiety Surgical History: - Smoking Status: Heavy Smoker (>10/day) - Family History Maternal Family History: Family History (Last Reviewed 11/27/18 @ 10:51 by Alecia Agrawal) Father Alcoholism Cancer Hypertension COPD (chronic obstructive pulmonary disease) CVA (cerebral vascular accident) Myocardial infarction, Onset Age: 46 Mother COPD (chronic obstructive pulmonary disease) Anxiety Cancer blood clots Grandmother Alcoholism Brother Alcoholism Hypertension Asthma Sister Alcoholism Family History: Reports: Cancer - bone Paternal Family History: Family History (Last Reviewed 11/27/18 @ 10:51 by Alecia Agrawal) Father Alcoholism Cancer Hypertension COPD (chronic obstructive pulmonary disease) CVA (cerebral vascular accident) Myocardial infarction, Onset Age: 46 Mother COPD (chronic obstructive pulmonary disease) Anxiety Cancer blood clots Grandmother Alcoholism Brother Alcoholism Hypertension Asthma Sister Alcoholism Family History: Reports: Cancer - colon Sibling Family History: Family History (Last Reviewed 11/27/18 @ 10:51 by Alecia Agrawal) Father Alcoholism Cancer Hypertension COPD (chronic obstructive pulmonary disease) CVA (cerebral vascular accident) Myocardial infarction, Onset Age: 46 Mother COPD (chronic obstructive pulmonary disease) Anxiety Cancer blood clots Grandmother Alcoholism Brother Alcoholism Hypertension Asthma Sister Alcoholism Family History: Reports: - - alcoholism Review of Systems All systems negative except as indicated General: Denies: Chills, Fever, Sweats Eyes: Denies: Visual changes - bilaterally, Diplopia ENT: Denies: Rhinorrhea, Sore throat Cardiovascular: Reports: Chest pain. Denies: Palpitations Respiratory: Reports: Dyspnea. Denies: Cough, Dyspnea on exertion Gastrointestinal: Denies: Abdominal pain, Nausea, Vomiting, Diarrhea Genitourinary: Denies: Dysuria, Hematuria, Frequency Musculoskeletal: Denies: Back pain, Extremity Pain Skin: Denies: Rash, Wounds Neurological: Reports: Parasthesia - Oral. Denies: Headache, Weakness, Numbness Physical Exam Vital Signs/Narrative: Vital Signs Temp Pulse Resp BP Pulse Ox 09/13/19 14:21 64 18 139/92 H 100 09/13/19 14:18 98.4 F 70 13 139/92 H 99 Inital Vital Signs reviewed: Yes General: Well nourished, Well developed, No Acute Distress Head: Normocephalic, Atraumatic Eyes: Perrl, EOMI ENT: Moist mucous membranes, No rhinorrhea Neck: Supple, Nontender Cardiovascular: Regular rate, Regular rhythm, No murmurs, - - 2+ radial pulses bilaterally Respiratory: No distress, CTA bilaterally, Chest nontender Abdomen: Soft, Nontender, Nondistended, Normal bowel sounds Back: Nontender, Normal Inspection Extremities: Nontender, No edema. Negative for: Edema, Calf Tenderness Skin: Normal color, No rash Neurological: Alert, Oriented x3, Cranial nerves II-XII grossly intact, Normal Strength, Normal Sensation Psychological: Normal affect, Normal Mood Diagnostic/Tx/Re-eval - EKG Initial EKG Interpretation: - - Rate of 61 bpm in sinus rhythm. Normal intervals. Normal axis. No ST elevations or depressions appreciated. No T wave abnormalities. No prior EKG for comparison. - Medical Decision Making Patient presents to the emergency department for an episode of chest pain that is since resolved. Upon arrival to the emerge department he is satting well on room air. Not tachycardic. He appears in no distress. EKG not show any signs of ischemia. Will obtain basic lab work along with chest x-ray. Patient's work-up did not reveal a significant acute abnormality. Initial troponin negative. I did offer the patient a second troponin III hours after the first with patient declining at this time. He ass a heart score of 1. He is stable for discharge home. Is been asymptomatic throughout ED stay. He does have a PCP which he states he will call on Monday morning for an appointment. If he develops any repeat symptoms or worsening symptoms he is to return to the emergency department immediately. Patient counseled on smoking sensation. He understands and is agreeable with this plan. ED Disposition - Plan for ED Patient: Disposition: Home or Assisted Living Diagnosis: Chest pain, Dyspnea Instructions: ED Dyspnea, ED Chest Pain [facility] Referrals: hTais Jesus MD [STAFF PHYSICIAN] - 2 Days
[2019-09-13 14:42] VITALS: O2SAT 99
[2019-09-13 14:50] LABS: Absolute Lymphocyte Count 1.11 X10^3/uL (0.83-4.51); Absolute Neutrophil Count 5.4 X10^3/uL (2.0-7.7); Basophil# 0.05 X10^3/uL; Basophil% 0.7 % (0-1); Eosinophils% 1.3 % (0-5); Hematocrit 38.3 % (40-54); Hemoglobin 13.2 g/dL (13.0-16.5); Lymphocyte # 1.11 X10^3/ul (4.0); Lymphocyte % 14.7 % (19-41); Mean Corp Hgb Conc 34.5 g/dL (32-36); Mean Corpuscular Hgb 37.1 pg (27.0-32.0); Mean Corpuscular Volume 107.6 fL (80-94); Monocyte# 0.87 X10^3/uL; Monocyte% 11.5 % (0-10); NRBC Flagged by Analyzer 0 % (0-5); Neutrophil # 5.37 X10^3/uL (2.7-7.7); Neutrophil % 71.3 % (47-70); Platelet Count 263 K/mm3 (150-450); RBC Distribution Width CV 12.4 % (11.6-14.6); Red Blood Count 3.56 M/mm3 (4.6-6.2); White Blood Count 7.5 K/mm3 (4.4-11.0)
--- NOTE | 2019-09-13 14:50 | RAD_ITS ---
STUDY: X-RAY CHEST REASON FOR EXAM: Male, 39 years old. CHEST PAIN. TECHNIQUE: PA and lateral views of the chest. COMPARISON: Comparison is made with prior study dated January 07, 2019. FINDINGS: EKG are seen. Hyperinflation. The lungs are clear. Once again, there is decreased bronchovascular markings suggestive of emphysematous changes. There is no demonstrated pleural abnormality. Normal size heart. Normal mediastinum and oscar. Normal visualized pulmonary arteries. Normal visualized aortic arch and descending thoracic aorta. Normal visualized thoracic spine. Normal visualized ribs, clavicles, and shoulders. There is no demonstrated abnormality of the visualized soft tissue structures of the upper abdomen. RAD/Chest PA and Lateral IMPRESSION: Hyperinflation. Electronically Signed: Ray Zuñiga, at 15:17 EDT , Service support ,
[2019-09-13 15:07] LABS: Anion Gap 6 (5-15); BUN 12 mg/dL (7-18); Calcium,Total 8.5 mg/dL (8.5-10.1); Chloride 108 mmol/L (98-107); EST Glomerular Filtration Rate 89 mL/min (>60); Est Glom Filt Rate - Afr Amer 108 mL/min (>60); Estimated Creatinine Clearance 91.27 ml/min; Glucose 93 mg/dL (74-106); Magnesium 1.8 mg/dL (1.6-2.6); Potassium 3.3 mmol/L (3.5-5.1); Sodium Level 139 mmol/L (136-145)
[2019-09-13 15:31] VITALS: BP 169/96; PULSE 79; RESP 17; O2SAT 96
== END 2019-09-13 15:38 | disposition home or self-care (01) ==
PROVIDERS: Emergency Provider Emergency Medicine; PCP Nurse Practitioner Family
DX: R07.89 Other chest pain (principal); R06.00 Dyspnea, unspecified; F41.9 Anxiety disorder, unspecified; Z79.899 Other long term (current) drug therapy; F17.210 Nicotine dependence, cigarettes, uncomplicated; F10.99 Alcohol use, unspecified with unspecified alcohol-induced disorder
CPT/HCPCS: 71046; 80048; 83735; 84484; 85025; 93005; 99284; A4216

== ENCOUNTER 2019-09-16 18:09 | Inpatient (IN) | payer OTHER, SELFPAY ==
[2019-09-16 18:11] VITALS: BP 129/91; PULSE 93; PULSE 96; RESP 17; TEMP 37.2; O2SAT 98; BMI 23.2
--- NOTE | 2019-09-16 18:52 | ED.DCSUM_ITS ---
History of Present Illness Chief Complaint: Substance Abuse Informant: Patient Narrative: Patient presents asking for help with alcohol detox. He drinks alcohol as well as some hard liquor. His last drink was at 3 AM this morning. He states he has felt very shaky and nauseated. He did take his BuSpar to help with anxiety before coming in and states that seemed to help take the edge off. He has been through detox in the past. He denies ever having seizures. He states he is try to quit drinking on his own but is unable to. He uses occasional marijuana but denies any other drug use. - Past Medical History (1) Alcoholism /alcohol abuse Status: Chronic (2) Anxiety Status: Chronic (3) Cannabis use, uncomplicated Status: Chronic Past Medical History - Allergies and Home Meds Allergies/Adverse Reactions: Allergies tramadol Allergy (Verified 09/16/19 18:09) Other aspirin Adverse Reaction (Verified 09/16/19 18:09) Nausea NSAIDS (Non-Steroidal Anti-Inflamma Adverse Reaction (Verified 09/16/19 18:09) Upset Stomach nicotine patch Allergy (Severe, Uncoded 09/13/19 14:18) Hives Primary Care Physician: Alber Hernandez NP-C [Primary Care Provider] - Prior records reviewed: Yes Surgical History: - Lives: With Family Smoking Status: Heavy Smoker (>10/day) Alcohol: Heavy Drugs: Marijuana - Family History Maternal Family History: Family History (Last Reviewed 11/27/18 @ 10:51 by Alecia Agrawal) Father Alcoholism Cancer Hypertension COPD (chronic obstructive pulmonary disease) CVA (cerebral vascular accident) Myocardial infarction, Onset Age: 46 Mother COPD (chronic obstructive pulmonary disease) Anxiety Cancer blood clots Grandmother Alcoholism Brother Alcoholism Hypertension Asthma Sister Alcoholism Family History: Reports: Cancer - bone Paternal Family History: Family History (Last Reviewed 11/27/18 @ 10:51 by Alecia Agrawal) Father Alcoholism Cancer Hypertension COPD (chronic obstructive pulmonary disease) CVA (cerebral vascular accident) Myocardial infarction, Onset Age: 46 Mother COPD (chronic obstructive pulmonary disease) Anxiety Cancer blood clots Grandmother Alcoholism Brother Alcoholism Hypertension Asthma Sister Alcoholism Family History: Reports: Cancer - colon Sibling Family History: Family History (Last Reviewed 11/27/18 @ 10:51 by Alecia Agrawal) Father Alcoholism Cancer Hypertension COPD (chronic obstructive pulmonary disease) CVA (cerebral vascular accident) Myocardial infarction, Onset Age: 46 Mother COPD (chronic obstructive pulmonary disease) Anxiety Cancer blood clots Grandmother Alcoholism Brother Alcoholism Hypertension Asthma Sister Alcoholism Family History: Reports: - - alcoholism Review of Systems General: Denies: Chills, Fever Eyes: Denies: Visual changes - bilaterally ENT: Denies: Bilateral ear pain Cardiovascular: Denies: Chest pain Respiratory: Denies: Dyspnea, Cough Gastrointestinal: Denies: Abdominal pain, Vomiting, Diarrhea Genitourinary: Denies: Dysuria Musculoskeletal: Denies: Extremity Pain Skin: Denies: Rash Neurological: Denies: Headache Hematologic: Denies: Easy bruising, Easy bleeding Allergy: Denies: Uticaria Physical Exam Vital Signs/Narrative: Vital Signs Temp Pulse Resp BP Pulse Ox 09/16/19 18:11 99.0 F 96 17 129/91 H 98 Inital Vital Signs reviewed: Yes General: Well nourished, Well developed Head: Normocephalic ENT: Moist mucous membranes Neck: Supple Cardiovascular: Regular rate, Regular rhythm Respiratory: No distress, CTA bilaterally Abdomen: Soft, Nontender Extremities: Nontender, - - Minimal tremor in the hands. Skin: Normal color, No rash Neurological: Alert, Oriented x3 Psychological: Normal affect Diagnostic/Tx/Re-eval Laboratory Results 09/16/19 09/16/19 09/16/19 19:15 19:15 19:18 WBC 7.8 RBC 3.82 L Hgb 14.1 Hct 40.5 MCV 106.0 H MCH 36.9 H MCHC 34.8 RDW Std Deviation 48.7 H RDW Coeff of Lexie 12.4 Plt Count 299 MPV 9.7 Immature Gran % (Auto) 0.400 Neut % (Auto) 63.7 Lymph % (Auto) 22.7 [place] % (Auto) 9.2 Eos % (Auto) 3.1 Baso % (Auto) 0.9 Absolute Neuts (auto) 5.0 Absolute Lymphs (auto) 1.78 Nucleated RBC % 0 Sodium 140 Potassium 3.8 Chloride 104 Carbon Dioxide 27.0 Anion Gap 9 BUN 8 Creatinine 1.21 Estim Creat Clear Calc 75.43 Est GFR (MDRD) Af Amer 87 Est GFR (MDRD) Non-Af 72 BUN/Creatinine Ratio 6.6 L Glucose 88 Calcium 8.7 Total Bilirubin 0.30 AST 68 H ALT 62 H Alkaline Phosphatase 89 Total Protein 7.4 Albumin 4.0 Globulin 3.4 Albumin/Globulin Ratio 1.2 Urine Opiates Screen NEGATIVE Urine Methadone Screen NEGATIVE Ur Barbiturates Screen NEGATIVE Ur Phencyclidine Scrn NEGATIVE Ur Amphetamines Screen NEGATIVE U Methamphetamin-MDMA NEGATIVE U Benzodiazepines Scrn NEGATIVE Urine Cocaine Screen NEGATIVE U Cannabinoids Screen POSITIVE H Ur Drug Screen Comment - Medical Decision Making Patient had taken his BuSpar short before arrival did not anything for anxiety currently. Labs are back other than the EtOH level. This would not change our disposition. I will speak with hospitalist regarding admission. ED Disposition - Plan for ED Patient: Disposition: Acute Care Hospital [facility] Diagnosis: Desire for detoxification Referrals: Alber Hernandez, LEYDI-C [Primary Care Provider] -
[2019-09-16 19:37] LABS: Absolute Lymphocyte Count 1.78 X10^3/uL (0.83-4.51); Basophil# 0.07 X10^3/uL; Basophil% 0.9 % (0-1); Eosinophil# 0.24 X10^3/uL; Eosinophils% 3.1 % (0-5); Hematocrit 40.5 % (40-54); Hemoglobin 14.1 g/dL (13.0-16.5); Lymphocyte # 1.78 X10^3/ul (4.0); Lymphocyte % 22.7 % (19-41); Mean Corp Hgb Conc 34.8 g/dL (32-36); Mean Corpuscular Hgb 36.9 pg (27.0-32.0); Mean Platelet Vol. 9.7 fl (6.2-12.0); Monocyte# 0.72 X10^3/uL; Monocyte% 9.2 % (0-10); NRBC Flagged by Analyzer 0 % (0-5); Neutrophil # 4.99 X10^3/uL (2.7-7.7); Neutrophil % 63.7 % (47-70); Platelet Count 299 K/mm3 (150-450); RBC Distribution Width CV 12.4 % (11.6-14.6); RBC Distribution Width SD 48.7 fl (35.1-43.9); Red Blood Count 3.82 M/mm3 (4.6-6.2); White Blood Count 7.8 K/mm3 (4.4-11.0)
[2019-09-16 19:55] LABS: ALB/GLOB Ratio 1.2 RATIO (0.9-2.4); AST(SGOT) 68 U/L (15-37); Alanine Aminotransfer ALT/SGPT 62 U/L (16-61); Alkaline Phosphatase 89 U/L (45-117); Anion Gap 9 (5-15); BUN 8 mg/dL (7-18); BUN/Creat Ratio 6.6 RATIO (10-20); Calcium,Total 8.7 mg/dL (8.5-10.1); Chloride 104 mmol/L (98-107); Creatinine, Serum 1.21 mg/dL (0.70-1.30); EST Glomerular Filtration Rate 72 mL/min (>60); Est Glom Filt Rate - Afr Amer 87 mL/min (>60); Estimated Creatinine Clearance 75.43 ml/min; Globulin 3.4 g/dL (2.2-4.2); Glucose 88 mg/dL (74-106); Potassium 3.8 mmol/L (3.5-5.1); Protein, Total 7.4 g/dL (6.4-8.2); Sodium Level 140 mmol/L (136-145)
[2019-09-16 20:14] LABS: Amphetamine Urine VISTA NEGATIVE (<1000 ng/mL); Barbiturate Urine VISTA NEGATIVE (< 200 ng/mL); Benzodiazepine Urine VISTA NEGATIVE (< 200 ng/mL); Cocaine Urine VISTA NEGATIVE (< 300 ng/mL); Ecstacy Urine VISTA NEGATIVE (< 500 ng/mL); Methadone Urine VISTA NEGATIVE (< 300 ng/mL); PCP Urine VISTA NEGATIVE (< 25 ng/mL); THC Urine VISTA POSITIVE (< 50 ng/mL); Vista UDS pH Range 6
--- NOTE | 2019-09-16 20:29 | CM.ED ---
Social Work Consult: Substance Abuse Informant: Self Referral Met with patient in room. Introduced self and nursing home social worker role. Patient spouse, Mercedes present. Patient comfortable speaking in front of Mercedes and requesting for Mercedes to remain in the room. Patient states to live at home with Mercedes, 13 year old daughter, and 16 year old son. Patient states substance of choice is Alcohol and consumes 5-7 Buzball's daily. Patient states to have had 9 last night. Patient states history of Depression and Anxiety. Patient denies any active suicidal thoughts/plans/intents. Patient states history of suicidal thoughts. Patient states to also use THC on occasion. 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 After detox, patient plans for outpatient follow up. Patient did Partial Hospitalization program through three years ago. Patient states to have prior experience with AA meetings and they helped. Patient states I just got away from what I needed to do. Patient and Mercedes tearful throughout conversation. Active listening and support provided. Will updated on patient admission once confirmed. Michelle PFEIFFER, VISH
--- NOTE | 2019-09-16 20:44 | HP.PCM_ITS ---
Problem List (1) Desire for detoxification Status: Acute (2) Tobacco abuse Status: Chronic (3) Cannabis use, uncomplicated Status: Chronic (4) Anxiety Status: Chronic (5) Depression Status: Chronic History of Present Illness Date of Admission: 09/16/19 Chief Complaint: alcohol withdrawal The patient is a 39 year old male patient with a significant medical history of alcoholism presents the emergency room requesting detoxification. Last known alcohol intake was 3:00 this morning after a binge of drinking approximately 9 buzz balls. He last attempted detoxification 3 years ago and was successful for 3 weeks but states he did not have a support system in place to help him be succ essful. He is seen with his spouse present who is also clearly done with the situation. The patient denies chest pain shortness of breath no fevers or chills or cough. He refused to have a nicotine patch states the last time he had when his blood pressure was elevated. He will be admitted to general medical floor for alcohol withdrawal protocol. Past Medical History Past Medical History (Chronic Problems): Chronic Problems (Last Reviewed 11/27/18 @ 10:51 by Alecia Agrawal) Nausea and vomiting (Chronic) Cough (Chronic) Tobacco abuse (Chronic) Insomnia (Chronic) Chronic bronchitis (Chronic) Cannabis use, uncomplicated (Chronic) Alcoholism /alcohol abuse (Chronic) Erectile dysfunction (Chronic) Anxiety (Chronic) Depression (Chronic) Medical History: Medical History (Last Reviewed 11/27/18 @ 10:51 by Alecia Agrawal) Chronic bronchitis (Chronic) J42 Anemia D64.9 Diarrhea R19.7 Fatigue R53.83 Glaucoma H40.9 Limb weakness R29.898 Shoulder pain M25.519 Allergies tramadol Allergy (Verified 09/16/19 18:09) Other aspirin Adverse Reaction (Verified 09/16/19 18:09) Nausea NSAIDS (Non-Steroidal Anti-Inflamma Adverse Reaction (Verified 09/16/19 18:09) Upset Stomach nicotine patch Allergy (Severe, Uncoded 09/13/19 14:18) Hives Home Medications: Ambulatory Orders Medication Instructions Recorded pantoprazole 40 mg tablet,delayed 40 mg PO BID #60 tab 11/27/18 release buspirone 15 mg tablet 15 mg PO QHS #90 tab 01/11/19 buspirone 30 mg tablet See Rx Instructions PO DAILY #90 01/11/19 tab Surgical History: - Psychiatric History: No pertinent psych hx Lives: With Family Smoking Status: Current every day smoker Alcohol: Heavy Drugs: Marijuana - *Family History Maternal Family History: Family History (Last Reviewed 11/27/18 @ 10:51 by Alecia Agrawal) Father Alcoholism Cancer Hypertension COPD (chronic obstructive pulmonary disease) CVA (cerebral vascular accident) Myocardial infarction, Onset Age: 46 Mother COPD (chronic obstructive pulmonary disease) Anxiety Cancer blood clots Grandmother Alcoholism Brother Alcoholism Hypertension Asthma Sister Alcoholism History Items: Cancer - bone Paternal Family History: Family History (Last Reviewed 11/27/18 @ 10:51 by Alecia Agrawal) Father Alcoholism Cancer Hypertension COPD (chronic obstructive pulmonary disease) CVA (cerebral vascular accident) Myocardial infarction, Onset Age: 46 Mother COPD (chronic obstructive pulmonary disease) Anxiety Cancer blood clots Grandmother Alcoholism Brother Alcoholism Hypertension Asthma Sister Alcoholism History Items: Cancer - colon Sibling Family History: Family History (Last Reviewed 11/27/18 @ 10:51 by Alecia Agrawal) Father Alcoholism Cancer Hypertension COPD (chronic obstructive pulmonary disease) CVA (cerebral vascular accident) Myocardial infarction, Onset Age: 46 Mother COPD (chronic obstructive pulmonary disease) Anxiety Cancer blood clots Grandmother Alcoholism Brother Alcoholism Hypertension Asthma Sister Alcoholism History Items: - - alcoholism Review of Systems Constitutional: Denies: Chills, Fever, Weight Change HEENT: Denies: Head Aches, Sinus Congestion, Sinus Drainage Cardiovascular: Denies: Chest Pain, Palpitations Respiratory: Denies: Cough, Shortness of breath at rest, Sputum production Gastrointestinal: Denies: Abdominal Pain, Nausea, Vomiting Genitourinary: Denies: Dysuria Musculoskeletal: Denies: Joint Pain, Joint Tenderness Skin: Denies: Rash, Wounds Neurological: Denies: Numbness, Tingling, Focal weakness Psychiatric: Reports: Anxiety. Denies: Depression, Homicidal Ideations, Suicidal Ideations Hematologic/ Lymphatic: Denies: Easy Bruising, Easy Bleeding VTE Information - Inpt Only VTE Present on Admission: No VTE Mechan Device Prophylaxis: None VTE Pharm Prophylaxis ordered?: Yes Patient Problems: Active and Suspected Problems (Last Reviewed 11/27/18 @ 10:51 by Alecia Agrawal) Desire for detoxification (Acute) - Physical Exam Vitals/I&O's: Vital Signs Temp Pulse Resp BP Pulse Ox 99.0 F 96 17 129/91 H 98 07/13/20 18:11 09/16/19 18:11 09/16/19 18:11 09/16/19 18:11 09/16/19 18:11 Oxygen Delivery Method Room Air Weight: 144 lb Body Mass Index (BMI) 23.2 General: Alert, Oriented x3, Cooperative HEENT: Atraumatic, PERRLA, EOMI, Normocephalic Neck: Supple Lungs: Clear to auscultation, Normal air movement, No rhonchi, No wheeze, No rales Cardiovascular: Regular rate, Normal S1, Normal S2, No murmurs Abdomen: Bowel Sounds Present, Soft, Non Tender Extremities: No edema Skin: No rashes Musculoskeletal: No Tenderness to Palpation of Joints or Extremities Neurological: Neuro grossly intact Psych/Mental Status: Appropriate, Agitated, Anxious Laboratory Results 09/16/19 19:15: WBC 7.8, RBC 3.82 L, Hgb 14.1, Hct 40.5, MCV 106.0 H, MCH 36.9 H , MCHC 34.8, RDW Std Deviation 48.7 H, RDW Coeff of Lexie 12.4, Plt Count 299, MPV 9.7, Immature Gran % (Auto) 0.400, Neut % (Auto) 63.7, Lymph % (Auto) 22.7, [place] % (Auto) 9.2, Eos % (Auto) 3.1, Baso % (Auto) 0.9, Absolute Neuts (auto) 5.0, Absolute Lymphs (auto) 1.78, Nucleated RBC % 0 09/16/19 19:15: Sodium 140, Potassium 3.8, Chloride 104, Carbon Dioxide 27.0, Anion Gap 9, BUN 8, Creatinine 1.21, Estim Creat Clear Calc 75.43, Est GFR (MDR D) Af Amer 87, Est GFR (MDRD) Non-Af 72, BUN/Creatinine Ratio 6.6 L, Glucose 88, Calcium 8.7, Total Bilirubin 0.30, AST 68 H, ALT 62 H, Alkaline Phosphatase 89, Total Protein 7.4, Albumin 4.0, Globulin 3.4, Albumin/Globulin Ratio 1.2 09/16/19 19:15: Ethyl Alcohol 118.0 09/16/19 19:18: Urine Opiates Screen NEGATIVE, Urine Methadone Screen NEGATIVE, Ur Barbiturates Screen NEGATIVE, Ur Phencyclidine Scrn NEGATIVE, Ur Amphetamines Screen NEGATIVE, U Methamphetamin-MDMA NEGATIVE, U Benzodiazepines Scrn NEGATIVE, Urine Cocaine Screen NEGATIVE, U Cannabinoids Screen POSITIVE H, Ur Drug Screen Comment Assessment/Plan All Active Problems (Last Reviewed 11/27/18 @ 10:51 by Alecia Agrawal) Desire for detoxification (Acute) Right shoulder strain (Acute) Arthrosis of right acromioclavicular joint (Acute) Abnormal LFTs (Acute) Hypokalemia (Acute) Withdrawn from alcohol detoxification program (Acute) Chronic Problems (Last Reviewed 11/27/18 @ 10:51 by Alecia Agrawal) Nausea and vomiting (Chronic) Cough (Chronic) Tobacco abuse (Chronic) Insomnia (Chronic) Chronic bronchitis (Chronic) Cannabis use, uncomplicated (Chronic) Alcoholism /alcohol abuse (Chronic) Erectile dysfunction (Chronic) Anxiety (Chronic) Depression (Chronic) Plan 1. Alcohol abuse/alcohol withdrawal?admit patient to medical surgical floor?initiate alcohol withdrawal protocol?consult case management for assistance with discharge planning and alcohol abstinence management 2. Tobacco abuse disorder?patient has refused nicotine patch at present time and may revisit that at later date 3. DVT prophylaxis?low molecular weight heparin Inpatient E&M: [id number] Init Hosp L3
[2019-09-16 20:59] VITALS: RESP 18
[2019-09-16 21:13] VITALS: BP 132/86; PULSE 56; RESP 16; TEMP 36.9; O2SAT 100
--- NOTE | 2019-09-16 21:15 | CM.ED ---
Social Work Telephone call to Jaiden Edmonds. Updated on patient admission to [facility] program. Michelle PFEIFFER, VISH
[2019-09-16 21:17] VITALS: BMI 21.2
[2019-09-16 21:27] VITALS: BMI 21.3
[2019-09-16] MEDS: Pantoprazole Sodium 40 MG Tablet PO (21:47)
[2019-09-16] MEDS: LORazepam 1 MG Tablet 0.5 MG PO (21:47)
[2019-09-16] MEDS: busPIRone 15 MG TABLET PO (21:47)
[2019-09-16] MEDS: Ondansetron 8 MG Tablet PO (21:47)
[2019-09-17] VITALS (7 sets, daily range): BP systolic 129–148; BP diastolic 82–107; PULSE 56–82; RESP 16–18; TEMP 36.4–37.2; O2SAT 98–100
[2019-09-17] MEDS: LORazepam 1 MG Tablet 0.5 MG PO ×6 (01:15→21:11)
--- NOTE | 2019-09-17 08:52 | CASEMGMT ---
Social Work Note Pt is [facility] pt. SW placed a call to Grisel at [facility] and updated her that pt will need to be seen. Stephenie Piper TUG MASTER, SENIOR POLICY ADVISOR
[2019-09-17] MEDS: Folic Acid 1 MG Tablet PO (09:03)
[2019-09-17] MEDS: Thiamine Hydrochloride 100 MG Tablet PO (09:04)
[2019-09-17] MEDS: Enoxaparin 40 MG/0.4 ML Syringe SC (09:55)
[2019-09-17] MEDS: Pantoprazole Sodium 40 MG Tablet PO ×2 (09:56→21:12)
--- NOTE | 2019-09-17 14:29 | ADDICTION ---
This specification writer met with patient in his room to conduct [facility] assessment and begin discharge planning. Patient was alert and oriented x4 and presented with depressed mood and affect. He stated that he last used alcohol on 09/16/2019 and has been a daily alcohol user for 20+ years. He reported no other AoD use. Patient appears appropriate for the 4.0 Medically Managed Intensive Inpatient LOC and was willing to schedule an appointment with [facility] for assessment and treatment planning on 09/20/2019 at 12pm following discharge from medical withdrawal management. He refused residential recommendation but is willing to engage in Intensive Outpatient and individual counseling. This specification writer provided patient with resources to community behavioral health agencies, AA meetings and other recovery related information. Patient was provided with a written discharge plan to complete prior to discharge to be reviewed with this specification writer. Patient was provided with initial intake paperwork to complete prior to his appointment with [facility] on 09/20/2019. Patient amiable to [facility] services and requested a specific primary counselor. [facility] LOC: 4.0 Medically Managed Intensive Inpatient Dimension1: Acute Intoxication and/or Withdrawal Potential Age of first use: 14 Last date of use: 09/16/2019. *Patient reports daily use- 6 mixed drinks (1 shot) and 6+ cans of beer for 20+ years. Patient reports a history of the following withdrawal symptoms: loss of appetite, shakiness, nausea, diarrhea, headaches, high blood pressure. Patient will likely experience severe withdrawal if medical withdrawal management protocol is not completed. Dimension2: Biomedical Conditions and Complications Patient reports that he was initially brought to [facility] by ambulance following passing out at work. He reports that, due to his alcohol use, he was severely dehydrated and my organs were shutting down. He reports that he is stable now due to medical intervention. Patient's chart indicates: abnormal LFTs, nausea, vomiting, insomnia and chronic bronchitis. Patient identified Alber Hernandez CNP, as his PCP and will schedule with him following discharge from medical withdrawal management. Dimension3: Emotional, Behavioral and/or Cognitive Conditions and Concerns E: Patient reports a history of depression and anxiety symptoms and a prior diagnosis of Social Anxiety Disorder. Patient presented with depressed mood and tearful affect and remained tearful throughout this assessment. B: Patient reports that he uses alcohol to relieve emotional discomfort. Patient states that he has limited ability to practice emotional regulation, especially when actively using alcohol. C: Patient was alert/oriented x4 and presented with average intelligence. Patient reports some fragmentation of memory during active alcohol use. Dimension4: Readiness for Change Patient was self-referred for medical withdrawal management following significant health scare. He reports that he can no longer maintain his life while using alcohol and appears motivated to engage in follow-up services after completion of medical withdrawal management. He appears to be in the preparation stage of change as evidenced by his identification of problem behaviors with plans to modify these behaviors without active changes to behaviors outside of engaging in medical withdrawal management. Patient has limited understanding of his pleasure-seeking behaviors and their consequences. Dimension5: Relapse, Continued Use or Continued Problem Potential This is patient's second attempt at sobriety. Patient was unsure of the date of his last attempt but stated that he relapsed after completion. Patient reports no history of MAT engagement. Patient reports no coping or relapse prevention skills. Patient primarily uses in the home he plans to return to. Patient reports significant relationship/life stress. Dimension6: Recovery/Living Environment Patient reports prior use in home. Patient lives in [place], [place] with his and reports relationship issues. Patient reports limited sober supports, no AA engagement and no current treatment engagement. Patient reports that he is mormonism but does not attend christianity. Patient reports no legal involvement. Patient reports willingness to engage in AA, obtain a sponsor and work the steps.
--- NOTE | 2019-09-17 16:01 | CHAPLAIN ---
Type of Pastoral Visit _x__ Initial Visit ___ Follow-up Visit ___ On-call Visit ___ General Patient Visit ___ Spiritual Assessment ___ Family Conference ___ Bereavement ___ Rapid Response ___ Code Blue ___ Other (describe below) Pastoral Care Referral From _x__ Patient ___ Family ___ Nurse ___ Physician ___ [place] Smearer ___ Seo Marketing Specialist ___ Other (describe below) Sacrament/Intervention _x__ Active listening ___ Anointing ___ Roman Catholic ___ Bereavement ___ Communion _x__ Taya exploration ___ _x__ Life review _x__ Prayer ___ Reconciliation ___ Sacrament of Sick _x__ Supportive presence ___ Wedding ___ Other (describe below) Pastoral Comments both patient and this floatlight powder mixer remember a time in a previous admission when encounter for spiritual care was given; pt was receptive to spiritual care in previous admission and is also receptive at this time; pt is tearful and states that he has marriage problems and that he had definite health scare last week which has resulted in this hospitalization and agreement for treatment; pt states that his employer encouraged this intervention and has been supportive of this; pt gives more information about life situation and his feelings; pt speaks to spiritual background but is not currently connected to any taya support; pt acknowledges that he has not availed himself of healthy coping skills; pt appears to have narrow social contacts beside immediate family and drinking buddies; pt is willing to have follow up help; pt given a list of taya based programs for support; pt is open to future visits with this floatlight powder mixer
--- NOTE | 2019-09-17 16:24 | PN_ITS ---
Patient Problems: Active and Suspected Problems (Last Reviewed 11/27/18 @ 10:51 by Alecia Agrawal) Desire for detoxification (Acute) Subjective: Patient was seen and examined today, he denied any severe anxiety or tremor. Patient requested a nicotine patch due to the fact he smokes as an outpatient. - Physical Exam Vitals/I&O's: Vital Signs Temp Pulse Resp BP Pulse Ox 97.9 F 75 18 133/97 H 98 09/17/19 14:00 09/17/19 14:00 09/17/19 14:00 09/17/19 14:00 09/17/19 14:00 Oxygen Delivery Method Room Air Weight: 59.8 kg Body Mass Index (BMI) 21.2 Intake and Output for Last 24 Hours 09/15/19 09/16/19 09/17/19 23:59 23:59 23:59 Intake Total 950 / 950 Balance 950 / 950 General: Alert, Oriented x3, Cooperative, No apparent distress, Well developed, Well nourished HEENT: Atraumatic, PERRLA, EOMI, Normocephalic Oral: Moist Mucosa Neck: Supple, No JVD, Trachea Midline, Thyroid Normal Size and Texture Lungs: Clear to auscultation, Normal air movement, No rhonchi, No wheeze, No rales Cardiovascular: Regular rate, Regular Rhythm, Normal S1, Normal S2, No murmurs, PMI Normal, No rub noted, No Gallop Abdomen: Bowel Sounds Present, Soft, Non Tender, Non-Distended Extremities: No clubbing, No cyanosis, No edema, Capillary Refill Less than 3 Seconds Skin: No rashes, No breakdown Musculoskeletal: No Tenderness to Palpation of Joints or Extremities Neurological: Cranial nerves II-XII grossly intact, Neuro grossly intact, Sensory exam intact to light touch and pain, Coordination normal Psych/Mental Status: Normal Affect, Appropriate, Alert and oriented to time, place, person, mood and affect Laboratory Results 09/16/19 19:15: WBC 7.8, RBC 3.82 L, Hgb 14.1, Hct 40.5, MCV 106.0 H, MCH 36.9 H , MCHC 34.8, RDW Std Deviation 48.7 H, RDW Coeff of Lexie 12.4, Plt Count 299, MPV 9.7, Immature Gran % (Auto) 0.400, Neut % (Auto) 63.7, Lymph % (Auto) 22.7, Bracken % (Auto) 9.2, Eos % (Auto) 3.1, Baso % (Auto) 0.9, Absolute Neuts (auto) 5.0, Absolute Lymphs (auto) 1.78, Nucleated RBC % 0 09/16/19 19:15: Sodium 140, Potassium 3.8, Chloride 104, Carbon Dioxide 27.0, Anion Gap 9, BUN 8, Creatinine 1.21, Estim Creat Clear Calc 75.43, Est GFR (MDRD) Af Amer 87, Est GFR (MDRD) Non-Af 72, BUN/Creatinine Ratio 6.6 L, Glucose 88, Calcium 8.7, Total Bilirubin 0.30, AST 68 H, ALT 62 H, Alkaline Phosphatase 89, Total Protein 7.4, Albumin 4.0, Globulin 3.4, Albumin/Globulin Ratio 1.2 09/16/19 19:15: Ethyl Alcohol 118.0 09/16/19 19:18: Urine Opiates Screen NEGATIVE, Urine Methadone Screen NEGATIVE, Ur Barbiturates Screen NEGATIVE, Ur Phencyclidine Scrn NEGATIVE, Ur Amphetamines Screen NEGATIVE, U Methamphetamin-MDMA NEGATIVE, U Benzodiazepines Scrn NEGATIVE, Urine Cocaine Screen NEGATIVE, U Cannabinoids Screen POSITIVE H, Ur Drug Screen Comment Current Medications Buspirone HCl (Buspar) 15 mg PO QHS [facility] Last Admin: 09/16/19 21:47 Dose: 15 mg Documented by: Dicyclomine HCl (Bentyl) 20 mg PO Q6H PRN PRN PRN Reason: abdominal discomfort Enoxaparin Sodium (Lovenox) 40 mg SC DAILY [facility] Last Admin: 09/17/19 09:55 Dose: 40 mg Documented by: Folic Acid (Folic Acid) 1 mg PO DAILY@0800 [facility] Last Admin: 09/17/19 09:03 Dose: 1 mg Documented by: Gabapentin (Neurontin) 300 mg PO Q8H PRN PRN PRN Reason: moderate to severe anxiety Hydroxyzine Pamoate (Vistaril Pamoate Capsule) 50 mg PO Q4H PRN PRN PRN Reason: mild anxiety Loperamide HCl (Imodium) 2 mg PO Q4H PRN PRN PRN Reason: LOOSE STOOLS Lorazepam (Ativan) 2 mg PO Q4H [facility]; Taper Stop: 09/21/19 05:44 Last Admin: 09/17/19 13:59 Dose: 2 mg Documented by: Lorazepam (Ativan) 2 mg PO Q2H PRN PRN; Protocol PRN Reason: CIWA score > 8 but <15 Lorazepam (Ativan) 2 mg PO UD PRN; Protocol PRN Reason: CIWA score >/=15. Lorazepam (Ativan) 2 mg IV Q2H PRN PRN; Protocol PRN Reason: CIWA score > 8 but <15 Lorazepam (Ativan) 2 mg IV UD PRN; Protocol PRN Reason: CIWA score >/=15. Nicotine (Nicoderm Cq (Pbkc)) 21 mg TRANSDERM. DAILY [facility] Last Admin: 09/17/19 14:46 Dose: 21 mg Documented by: Ondansetron HCl (Zofran) 8 mg PO Q8H PRN PRN PRN Reason: NAUSEA Last Admin: 09/16/19 21:47 Dose: 8 mg Documented by: Pantoprazole Sodium (Protonix) 40 mg PO BID [facility] Last Admin: 09/17/19 09:56 Dose: 40 mg Documented by: Sodium Chloride () 10 - 40 ml IV UD PRN PRN Reason: SALINE FLUSH Thiamine HCl (Vitamin B1) 100 mg PO DAILYCM [facility] Last Admin: 09/17/19 09:04 Dose: 100 mg Documented by: Trazodone HCl (Desyrel) 100 mg PO QHS PRN PRN Reason: INSOMNIA Medical Necessity - Tobacco Use Smoking Status: Current every day smoker Tobacco Use: Cigarettes Assessment/Plan All Active Problems (Last Reviewed 11/27/18 @ 10:51 by Alecia Agrawal) Desire for detoxification (Acute) Right shoulder strain (Acute) Arthrosis of right acromioclavicular joint (Acute) Abnormal LFTs (Acute) Hypokalemia (Acute) Withdrawn from alcohol detoxification program (Acute) #1 acute alcohol withdrawal-patient appears minimally symptomatic at this time, continue present medications per protocol #2 chronic alcoholism-patient will be following up with [facility] for a discharge plan. Inpatient E&M: 91353 Subs Hosp L2
[2019-09-17] MEDS: busPIRone 15 MG TABLET PO (21:12)
[2019-09-18] MEDS: LORazepam 1 MG Tablet 0.5 MG PO ×6 (01:52→22:01)
[2019-09-18 03:30] VITALS: BP 136/95; PULSE 76; RESP 16; TEMP 36.4; O2SAT 100
[2019-09-18] MEDS: hydrOXYzine PAM 25 MG Capsule 50 MG PO ×2 (03:38→09:56)
[2019-09-18] MEDS: Folic Acid 1 MG Tablet PO (07:51)
[2019-09-18] MEDS: Thiamine Hydrochloride 100 MG Tablet PO (07:51)
[2019-09-18] MEDS: Enoxaparin 40 MG/0.4 ML Syringe SC (09:57)
[2019-09-18] MEDS: Pantoprazole Sodium 40 MG Tablet PO ×2 (09:57→22:01)
[2019-09-18 10:00] VITALS: BP 134/92; PULSE 80; RESP 16; TEMP 36.9; O2SAT 100
[2019-09-18 11:00] VITALS: BP 134/92; PULSE 90; RESP 18; TEMP 36.9; O2SAT 98
--- NOTE | 2019-09-18 11:45 | NURSING ---
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 This nurse into see pt and he states he is worried that his boss will not know what is going on with him and he will not be able to stay until the said discharge date of 09/20/19. Nurse made phone call to his and she will call his boss on this matter. Nurse communicates this with the patient and he now states you don't understand I need to talk to my . The people I need to communicate with I cannot. Nurse review the contract he signed on admission for the [facility] program. Patient now states yea they said something like that. [place] in room visiting. Pt spouse return phone call and states to this nurse that she did talk to his boss and they are 100% supportive of patient being in hospital. Also to let pt know that his job is secure and guarantee upon his getting sober.
--- NOTE | 2019-09-18 13:15 | CHAPLAIN ---
Type of Pastoral Visit ___ Initial Visit _x__ Follow-up Visit ___ On-call Visit ___ General Patient Visit ___ Spiritual Assessment ___ Family Conference ___ Bereavement ___ Rapid Response ___ Code Blue ___ Other (describe below) Pastoral Care Referral From _x__ Patient ___ Family ___ Nurse ___ Physician ___ Senior Unix Administrator ___ Foot Setter ___ Other (describe below) Sacrament/Intervention _x__ Active listening ___ Anointing ___ Jain ___ Bereavement ___ Communion _x__ Taya exploration ___ _x__ Life review _x__ Prayer ___ Reconciliation ___ Sacrament of Sick _x__ Supportive presence ___ Wedding ___ Other (describe below) Pastoral Comments found patient to be anxious and stating that he was planning to leave AMA; sat with patient and listened to his concerns about contacting , employer, and having ability to walk (get out of this room); calm presence given for long period; conversation about family, marriage, history; RN returns to room to say spouse was contacted and given assurances that employer wants pt to be sober and job is safe; secured permission to walk with pt around the halls and did that; spoke about spiritual support and about taya involvement; pt is tearful at moments; pt has become calm and states I am doing a lot better now;
--- NOTE | 2019-09-18 15:12 | ADDICTION ---
This senior copywriter met with patient in his room. He was alert, oriented x4 and participated appropriately throughout this meeting. He maintained appropriate posture and was cooperative. He reported no SI or HI. He presented with depressed mood and agitated affect and noted that he is feeling anxious and nervous as his employer is unaware of how long medical withdrawal management can take. He reports that he plans to follow up with [facility] and is scheduled for an assessment appointment on 09/20/2019 at 12pm. He appears appropriate for the 4.0 LOC as evidenced by: [facility] LOC: 4.0 Medically Managed Intensive Inpatient Dimension1: Acute Intoxication and/or Withdrawal Potential Age of first use: 14 Last date of use: 09/16/2019. *Patient reports daily use- 6 mixed drinks (1 shot) and 6+ cans of beer for 20+ years. Patient reports a history of the following withdrawal symptoms: loss of appetite, shakiness, nausea, diarrhea, headaches, high blood pressure. Patient will likely experience severe withdrawal if medical withdrawal management protocol is not completed. Dimension2: Biomedical Conditions and Complications Patient reports that he was initially brought to [facility] by ambulance following passing out at work. He reports that, due to his alcohol use, he was severely dehydrated and my organs were shutting down. He reports that he is stable now due to medical intervention. Patient's chart indicates: abnormal LFTs, nausea, vomiting, insomnia and chronic bronchitis. Patient identified Alber Hernandez CNP, as his PCP and will schedule with him following discharge from medical withdrawal management. Dimension3: Emotional, Behavioral and/or Cognitive Conditions and Concerns E: Patient reports a history of depression and anxiety symptoms and a prior diagnosis of Social Anxiety Disorder. Patient presented with depressed mood and tearful affect and remained tearful throughout this assessment. B: Patient reports that he uses alcohol to relieve emotional discomfort. Patient states that he has limited ability to practice emotional regulation, especially when actively using alcohol. C: Patient was alert/oriented x4 and presented with average intelligence. Patient reports some fragmentation of memory during active alcohol use. Dimension4: Readiness for Change Patient was self-referred for medical withdrawal management following significant health scare. He reports that he can no longer maintain his life while using alcohol and appears motivated to engage in follow-up services after completion of medical withdrawal management. He appears to be in the preparation stage of change as evidenced by his identification of problem behaviors with plans to modify these behaviors without active changes to behaviors outside of engaging in medical withdrawal management. Patient has limited understanding of his pleasure-seeking behaviors and their consequences. Dimension5: Relapse, Continued Use or Continued Problem Potential This is patient's second attempt at sobriety. Patient was unsure of the date of his last attempt but stated that he relapsed after completion. Patient reports no history of MAT engagement. Patient reports no coping or relapse prevention skills. Patient primarily uses in the home he plans to return to. Patient reports significant relationship/life stress. Dimension6: Recovery/Living Environment Patient reports prior use in home. Patient lives in [place], [place] with his and reports relationship issues. Patient reports limited sober supports, no AA engagement and no current BH treatment engagement. Patient reports that he is islam but does not attend yazidism. Patient reports no legal involvement. Patient reports willingness to engage in AA, obtain a sponsor and work the steps and is scheduled to engage with [facility] for follow-up care and AoD treatment.
[2019-09-18 17:00] VITALS: BP 125/99; PULSE 92; RESP 18; TEMP 36.6; O2SAT 98
--- NOTE | 2019-09-18 17:02 | PCM.PROGNOTE ---
Patient Problems: Active and Suspected Problems (Last Reviewed 11/27/18 @ 10:51 by Alecia Agrawal) Desire for detoxification (Acute) Subjective: Seen and examined today, he told this examiner that he talked with [facility] about follow-up plans as an outpatient, they feel that he does not need to have inpatient treatment [facility]. - Physical Exam Vitals/I&O's: Vital Signs Temp Pulse Resp BP Pulse Ox 98.5 F 90 18 134/92 H 98 09/18/19 11:00 09/18/19 11:00 09/18/19 11:00 09/18/19 11:00 09/18/19 11:00 Oxygen Delivery Method Room Air Weight: 59.8 kg Body Mass Index (BMI) 21.2 Intake and Output for Last 24 Hours 09/16/19 09/17/19 09/18/19 23:59 23:59 23:59 Intake Total 1600 / 1600 1090 / 1090 Balance 1600 / 1600 1090 / 1090 General: Alert, Oriented x3, Cooperative, No apparent distress, Well developed, Well nourished HEENT: Atraumatic, PERRLA, EOMI, Normocephalic Oral: Moist Mucosa Neck: Supple, Trachea Midline, Thyroid Normal Size and Texture Lungs: Clear to auscultation, Normal air movement, No rhonchi, No wheeze, No rales Cardiovascular: Regular rate, Regular Rhythm, Normal S1, Normal S2, No murmurs, PMI Normal, No Gallop Abdomen: Bowel Sounds Present, Soft, Non Tender, Non-Distended, No hernias noted Extremities: No clubbing, No cyanosis, No edema, Capillary Refill Less than 3 Seconds Skin: No rashes, No breakdown Musculoskeletal: No Tenderness to Palpation of Joints or Extremities Neurological: Cranial nerves II-XII grossly intact, Neuro grossly intact, Sensory exam intact to light touch and pain, Coordination normal Psych/Mental Status: Normal Affect, Appropriate, Alert and oriented to time, place, person, mood and affect Current Medications Buspirone HCl (Buspar) 15 mg PO QHS [facility] Last Admin: 09/17/19 21:12 Dose: 15 mg Documented by: Dicyclomine HCl (Bentyl) 20 mg PO Q6H PRN PRN PRN Reason: abdominal discomfort Enoxaparin Sodium (Lovenox) 40 mg SC DAILY [facility] Last Admin: 09/18/19 09:57 Dose: 40 mg Documented by: Folic Acid (Folic Acid) 1 mg PO DAILY@0800 [facility] Last Admin: 09/18/19 07:51 Dose: 1 mg Documented by: Gabapentin (Neurontin) 300 mg PO Q8H PRN PRN PRN Reason: moderate to severe anxiety Hydroxyzine Pamoate (Vistaril Pamoate Capsule) 50 mg PO Q4H PRN PRN PRN Reason: mild anxiety Last Admin: 09/18/19 09:56 Dose: 50 mg Documented by: Loperamide HCl (Imodium) 2 mg PO Q4H PRN PRN PRN Reason: LOOSE STOOLS Lorazepam (Ativan) 1 mg PO Q4H [facility]; Taper Stop: 09/21/19 05:44 Last Admin: 09/18/19 14:29 Dose: 1 mg Documented by: Lorazepam (Ativan) 2 mg PO Q2H PRN PRN; Protocol PRN Reason: CIWA score > 8 but <15 Lorazepam (Ativan) 2 mg PO UD PRN; Protocol PRN Reason: CIWA score >/=15. Lorazepam (Ativan) 2 mg IV Q2H PRN PRN; Protocol PRN Reason: CIWA score > 8 but <15 Lorazepam (Ativan) 2 mg IV UD PRN; Protocol PRN Reason: CIWA score >/=15. Nicotine (Nicoderm Cq (Pbkc)) 21 mg TRANSDERM. DAILY [facility] Last Admin: 09/18/19 09:57 Dose: 21 mg Documented by: Ondansetron HCl (Zofran) 8 mg PO Q8H PRN PRN PRN Reason: NAUSEA Last Admin: 09/16/19 21:47 Dose: 8 mg Documented by: Pantoprazole Sodium (Protonix) 40 mg PO BID [facility] Last Admin: 09/18/19 09:57 Dose: 40 mg Documented by: Sodium Chloride () 10 - 40 ml IV UD PRN PRN Reason: SALINE FLUSH Thiamine HCl (Vitamin B1) 100 mg PO DAILYCM [facility] Last Admin: 09/18/19 07:51 Dose: 100 mg Documented by: Trazodone HCl (Desyrel) 100 mg PO QHS PRN PRN Reason: INSOMNIA Medical Necessity - Tobacco Use Smoking Status: Current every day smoker Tobacco Use: Cigarettes Assessment/Plan All Active Problems (Last Reviewed 11/27/18 @ 10:51 by Alecia Agrawal) Desire for detoxification (Acute) Right shoulder strain (Resolved) Arthrosis of right acromioclavicular joint (Resolved) Abnormal LFTs (Acute) Hypokalemia (Resolved) #1 acute alcohol withdrawal-patient appears minimally symptomatic at this time, continue present medications per protocol, patient will follow-up with [facility] as an outpatient if and he has an appointment for this Monday #2 chronic [id number] with [facility] on Monday Inpatient E&M: 38919 Subs Hosp L2
[2019-09-18] MEDS: Acetaminophen 500 MG Tablet 1000 MG PO (20:55)
[2019-09-18 21:42] VITALS: BP 145/85; PULSE 69; RESP 18; TEMP 36.6; O2SAT 99
[2019-09-18] MEDS: 0.9% Saline Lock 10 ML Syringe IV (21:59)
[2019-09-18] MEDS: busPIRone 15 MG TABLET PO (22:01)
[2019-09-19] MEDS: LORazepam 1 MG Tablet 0.5 MG PO ×5 (03:00→23:57)
[2019-09-19 03:01] VITALS: BP 131/85; PULSE 60; RESP 16; TEMP 36.5; O2SAT 99
[2019-09-19] MEDS: Acetaminophen 500 MG Tablet 1000 MG PO ×3 (06:10→21:18)
[2019-09-19] MEDS: Pantoprazole Sodium 40 MG Tablet PO ×2 (08:13→21:18)
[2019-09-19] MEDS: Folic Acid 1 MG Tablet PO (08:13)
[2019-09-19] MEDS: Enoxaparin 40 MG/0.4 ML Syringe SC (08:13)
[2019-09-19] MEDS: Thiamine Hydrochloride 100 MG Tablet PO (08:13)
[2019-09-19] MEDS: hydrOXYzine PAM 25 MG Capsule 50 MG PO (08:17)
[2019-09-19 08:23] VITALS: BP 130/90; PULSE 111; RESP 16; TEMP 36.6; O2SAT 100
[2019-09-19] MEDS: busPIRone 15 MG TABLET 30 MG PO (11:37)
[2019-09-19 11:45] VITALS: BP 128/97; PULSE 106; RESP 16; TEMP 36.4; O2SAT 99
[2019-09-19] MEDS: Gabapentin 300 MG Capsule PO (12:51)
--- NOTE | 2019-09-19 13:01 | ADDICTION ---
This greeting card writer met with patient, in his room, to continue discharge planning and to review patient?s completed written discharge plan. Plan was completed upon this greeting card writer?s arrival. Patient and this greeting card writer discussed the importance of sober support and positive, sobriety enforcing activities to engage in upon discharge from medical withdrawal management. Patient and this greeting card writer also processed the stages of relapse, relapse prevention and goals for sobriety. Patient confirmed that he will attend his scheduled appointment at [facility] at 12 pm on 09/20/2019 and plans to follow through with treatment recommendations. [facility] LOC: 4.0 Medically Managed Intensive Inpatient Dimension1: Acute Intoxication and/or Withdrawal Potential Age of first use: 14 Last date of use: 09/16/2019. *Patient reports daily use- 6 mixed drinks (1 shot) and 6+ cans of beer for 20+ years. Patient reports a history of the following withdrawal symptoms: loss of appetite, shakiness, nausea, diarrhea, headaches, high blood pressure. Patient will likely experience severe withdrawal if medical withdrawal management protocol is not completed. Dimension2: Biomedical Conditions and Complications Patient reports that he was initially brought to [facility] by ambulance following passing out at work. He reports that, due to his alcohol use, he was severely dehydrated and my organs were shutting down. He reports that he is stable now due to medical intervention. Patient's chart indicates: abnormal LFTs, nausea, vomiting, insomnia and chronic bronchitis. Patient identified Alber Hernandez CNP, as his PCP and will schedule with him following discharge from medical withdrawal management. Dimension3: Emotional, Behavioral and/or Cognitive Conditions and Concerns E: Patient reports a history of depression and anxiety symptoms and a prior diagnosis of Social Anxiety Disorder. Patient presented with euthymic mood and broad affect and noted that he is feeling much more positive and motivated today based on the progress he?s made while in medical withdrawal management. B: Patient reports that he uses alcohol to relieve emotional discomfort. Patient states that he has limited ability to practice emotional regulation, especially when actively using alcohol. C: Patient was alert/oriented x4 and presented with average intelligence. Patient reports some fragmentation of memory during active alcohol use. Dimension4: Readiness for Change Patient was self-referred for medical withdrawal management following significant health scare. He reports that he can no longer maintain his life while using alcohol and appears motivated to engage in follow-up services after completion of medical withdrawal management. He appears to be in the preparation stage of change as evidenced by his identification of problem behaviors with plans to modify these behaviors without active changes to behaviors outside of engaging in medical withdrawal management. Patient has limited understanding of his pleasure-seeking behaviors and their consequences. Dimension5: Relapse, Continued Use or Continued Problem Potential This is patient's second attempt at sobriety. Patient was unsure of the date of his last attempt but stated that he relapsed after completion. Patient reports no history of MAT engagement. Patient reports no coping or relapse prevention skills. Patient primary uses in the home that he plans to return to. Patient reports significant relationship/life stress. Dimension6: Recovery/Living Environment Patient reports prior use in home. Patient lives in [place], [place] with his and reports relationship issues. Patient reports limited sober supports, no AA engagement and no current BH treatment engagement. Patient reports that he is taoist but does not attend yazdanism. Patient reports no legal involvement. Patient reports willingness to engage in AA, obtain a sponsor and work the steps and is scheduled to engage with [facility] for follow-up care and AoD treatment.
--- NOTE | 2019-09-19 15:15 | CHAPLAIN ---
Type of Pastoral Visit ___ Initial Visit _x__ Follow-up Visit ___ On-call Visit ___ General Patient Visit ___ Spiritual Assessment ___ Family Conference ___ Bereavement ___ Rapid Response ___ Code Blue ___ Other (describe below) Pastoral Care Referral From _x__ Patient ___ Family ___ Nurse ___ Physician ___ Mechanical Assembly Technician ___ Dialysis Technician ___ Other (describe below) Sacrament/Intervention _x__ Active listening ___ Anointing ___ Hoahaoism ___ Bereavement ___ Communion _x__ Taya exploration ___ _x__ Life review _x__ Prayer ___ Reconciliation ___ Sacrament of Sick _x__ Supportive presence ___ Wedding ___ Other (describe below) Pastoral Comments at request of patient returned to visit him today; pt continues to self disclose his issues and offers good insight of his problem; pt is focused on getting home and getting to work; pt acknowledges he has work to do on himself and to be open to change; pt states that he is often either sad or mad and uses alcohol to cover/cope; pt is open to spiritual care and was offered information on support groups in the area that are taya based; pt is planning to work through [facility] and attend counseling intake tomorrow; pt welcomes presence, prayer, and expresses appreciation for taking time with me
--- NOTE | 2019-09-19 15:49 | PN_ITS ---
Patient Problems: Active and Suspected Problems (Last Reviewed 11/27/18 @ 10:51 by Alecia Agrawal) Desire for detoxification (Acute) Subjective: Patient was seen and examined today, he had some muscle cramping yesterday and was placed on muscle relaxants and ibuprofen. He is scheduled to go to [facility] tomorrow for follow-up detox services. - Physical Exam Vitals/I&O's: Vital Signs Temp Pulse Resp BP Pulse Ox 97.5 F L 106 H 16 128/97 H 99 09/19/19 11:45 09/19/19 11:45 09/19/19 11:45 09/19/19 11:45 09/19/19 11:45 Oxygen Delivery Method Room Air Weight: 59.8 kg Body Mass Index (BMI) 21.2 Intake and Output for Last 24 Hours 09/17/19 09/18/19 09/19/19 23:59 23:59 23:59 Intake Total 1600 / 1600 1940 / 2340 1000 / 1000 Balance 1600 / 1600 1940 / 2340 1000 / 1000 General: Alert, Oriented x3, Cooperative, No apparent distress, Well developed, Well nourished HEENT: Atraumatic, PERRLA, EOMI, Normocephalic Oral: Moist Mucosa Neck: Supple, Trachea Midline, Thyroid Normal Size and Texture Lungs: Clear to auscultation, Normal air movement, No rhonchi, No wheeze, No rales Cardiovascular: Regular rate, Regular Rhythm, Normal S1, Normal S2, No murmurs, PMI Normal, No rub noted Abdomen: Bowel Sounds Present, Soft, Non Tender, Non-Distended Extremities: No clubbing, No cyanosis, No edema, Capillary Refill Less than 3 Seconds Skin: No rashes, No breakdown Musculoskeletal: No Tenderness to Palpation of Joints or Extremities Neurological: Cranial nerves II-XII grossly intact, Neuro grossly intact, Muscle tone normal, Sensory exam intact to light touch and pain, Coordination normal Psych/Mental Status: Normal Affect, Appropriate, Alert and oriented to time, place, person, mood and affect Current Medications Acetaminophen (Tylenol) 1,000 mg PO Q8 [facility] Last Admin: 09/19/19 12:51 Dose: 1,000 mg Documented by: Buspirone HCl (Buspar) 15 mg PO QHS [facility] Last Admin: 09/18/19 22:01 Dose: 15 mg Documented by: Buspirone HCl (Buspar) 30 mg PO DAILY [facility] Last Admin: 09/19/19 11:37 Dose: 30 mg Documented by: Dicyclomine HCl (Bentyl) 20 mg PO Q6H PRN PRN PRN Reason: abdominal discomfort Enoxaparin Sodium (Lovenox) 40 mg SC DAILY [facility] Last Admin: 09/19/19 08:13 Dose: 40 mg Documented by: Folic Acid (Folic Acid) 1 mg PO DAILY@0800 [facility] Last Admin: 09/19/19 08:13 Dose: 1 mg Documented by: Gabapentin (Neurontin) 300 mg PO Q8H PRN PRN PRN Reason: moderate to severe anxiety Last Admin: 09/19/19 12:51 Dose: 300 mg Documented by: Hydroxyzine Pamoate (Vistaril Pamoate Capsule) 50 mg PO Q4H PRN PRN PRN Reason: mild anxiety Last Admin: 09/19/19 08:17 Dose: 50 mg Documented by: Loperamide HCl (Imodium) 2 mg PO Q4H PRN PRN PRN Reason: LOOSE STOOLS Lorazepam (Ativan) 1 mg PO Q6H [facility]; Taper Stop: 09/21/19 05:44 Last Admin: 09/19/19 11:37 Dose: 1 mg Documented by: Lorazepam (Ativan) 2 mg PO Q2H PRN PRN; Protocol PRN Reason: CIWA score > 8 but <15 Lorazepam (Ativan) 2 mg PO UD PRN; Protocol PRN Reason: CIWA score >/=15. Lorazepam (Ativan) 2 mg IV Q2H PRN PRN; Protocol PRN Reason: CIWA score > 8 but <15 Lorazepam (Ativan) 2 mg IV UD PRN; Protocol PRN Reason: CIWA score >/=15. Methocarbamol (Robaxin) 1,000 mg PO 4X/DAY PRN PRN Reason: muscle cramps Nicotine (Nicoderm Cq (Pbkc)) 21 mg TRANSDERM. DAILY [facility] Last Admin: 09/19/19 08:13 Dose: 21 mg Documented by: Ondansetron HCl (Zofran) 8 mg PO Q8H PRN PRN PRN Reason: NAUSEA Last Admin: 09/16/19 21:47 Dose: 8 mg Documented by: Pantoprazole Sodium (Protonix) 40 mg PO BID [facility] Last Admin: 09/19/19 08:13 Dose: 40 mg Documented by: Sodium Chloride () 10 - 40 ml IV UD PRN PRN Reason: SALINE FLUSH Last Admin: 09/18/19 21:59 Dose: 10 ml Documented by: Thiamine HCl (Vitamin B1) 100 mg PO DAILYCM [facility] Last Admin: 09/19/19 08:13 Dose: 100 mg Documented by: Trazodone HCl (Desyrel) 100 mg PO QHS PRN PRN Reason: INSOMNIA Medical Necessity - Tobacco Use Smoking Status: Current every day smoker Tobacco Use: Cigarettes Assessment/Plan All Active Problems (Last Reviewed 11/27/18 @ 10:51 by Alecia Agrawal) Desire for detoxification (Acute) Right shoulder strain (Resolved) Arthrosis of right acromioclavicular joint (Resolved) Abnormal LFTs (Acute) Hypokalemia (Resolved) #1 acute alcohol withdrawal-patient appears minimally symptomatic at this time, continue present medications per protocol, patient will follow-up with 180 as an outpatient if and he has an appointment for this Monday #2 chronic [id number] with 180 on Monday No changes in medical therapy at this time. Inpatient E&M: 98371 Subs Hosp L2
[2019-09-19 16:32] VITALS: BP 148/93; PULSE 72; RESP 16; TEMP 36.9; O2SAT 100
[2019-09-19] MEDS: Methocarbamol 500 MG Tablet 1000 MG PO (17:28)
[2019-09-19 21:13] VITALS: BP 136/95; PULSE 86; RESP 16; TEMP 36.6; O2SAT 100
[2019-09-19] MEDS: busPIRone 15 MG TABLET PO (21:18)
[2019-09-19] MEDS: 0.9% Saline Lock 10 ML Syringe IV (21:29)
[2019-09-19] MEDS: Loperamide 2 MG Capsule PO (21:34)
[2019-09-19] MEDS: traZODone 100 MG Tablet PO (21:34)
[2019-09-19 23:55] VITALS: BP 112/85; PULSE 75; RESP 16; TEMP 36.6; O2SAT 99
[2019-09-20 05:28] VITALS: BP 100/69; PULSE 81; RESP 16; TEMP 36.4; O2SAT 98
[2019-09-20] MEDS: Acetaminophen 500 MG Tablet 1000 MG PO (05:34)
[2019-09-20] MEDS: LORazepam 1 MG Tablet 0.5 MG PO ×2 (05:57→12:18)
[2019-09-20] MEDS: busPIRone 15 MG TABLET 30 MG PO (08:54)
[2019-09-20] MEDS: Thiamine Hydrochloride 100 MG Tablet PO (08:55)
[2019-09-20] MEDS: Folic Acid 1 MG Tablet PO (08:55)
[2019-09-20] MEDS: Pantoprazole Sodium 40 MG Tablet PO (10:20)
--- NOTE | 2019-09-20 11:00 | DCINST_ITS ---
- Discharge Diagnoses Current Active Problems: Current Active and Chronic Problems (Last Reviewed 11/27/18 @ 10:51 by Alecia Agrawal) Desire for detoxification (Acute) You will use the following diet at home:: No restrictions Your food should be the consistency of: Regular Your liquids should be the consistency of: Regular/Thin Discharge Activity: Return to Normal Activity Weight Bearing Status: Full weight bearing Additional Instructions: follow up with 180 as directed Allergies/Adverse Reactions: Allergies tramadol Allergy (Verified 09/16/19 18:09) Other aspirin Adverse Reaction (Verified 09/16/19 18:09) Nausea NSAIDS (Non-Steroidal Anti-Inflamma Adverse Reaction (Verified 09/16/19 18:09) Upset Stomach nicotine patch Allergy (Severe, Uncoded 09/13/19 14:18) Hives Medications to take at Discharge pantoprazole 40 mg tablet,delayed release 40 mg PO BID #60 tab 11/27/18 buspirone 15 mg tablet 15 mg PO QHS #90 tab 01/11/19 Buspirone HCl 30 mg PO DAILY 09/16/19 busPIRone [Buspar] 30 mg PO DAILY tablet 09/20/19 Primary Care Physician: Alber Hernandez NP-C [Primary Care Provider] - Test Results: Test results from this visit will be discussed in further detail at your follow- up appointment, if applicable.
[2019-09-20 11:01] VITALS: BP 137/90; PULSE 97; RESP 18; TEMP 36.4; O2SAT 98
--- NOTE | 2019-09-21 15:04 | DS.PCM_ITS ---
Discharge Date and Diagnosis Date of Admission: 09/16/19 Date of Discharge: 09/20/19 - Primary Discharge Diagnosis Acute Problems: #1 acute alcohol withdrawal #2 chronic alcoholism #3 chronic anxiety - Secondary Discharge Diagnosis Chronic Problems: Chronic Problems (Last Reviewed 11/27/18 @ 10:51 by Alecia Agrawal) Nausea and vomiting (Chronic) Cough (Chronic) Tobacco abuse (Chronic) Insomnia (Chronic) Chronic bronchitis (Chronic) Cannabis use, uncomplicated (Chronic) Alcoholism /alcohol abuse (Chronic) Erectile dysfunction (Chronic) Anxiety (Chronic) Depression (Chronic) Hospital Course and Treatment Operations: None Procedures: None Summary of Care Provided: The patient is a 39 year old M was seen in the emergency room at [facility] requesting help for alcohol detox. Work-up in the emergency room included a tox screen which was positive for cannabinoids, patient's chemistry profile was unremarkable, liver profile was remarkable for an AST of 68 and ALT of 62. Patient's CBC was unremarkable. Ethanol level was 118. Patient was admitted to [place] [id number], order sets were entered using the standard detox alcohol order set template, patient met with 180 and an outpatient detox plan was set up. Patient had no severe events during his hospitalization, he had no evidence of DTs. On 09/20/2019, patient was seen and examined: On examination he appeared in good health and spirits. Vital signs as documented. Skin warm and dry and without overt rashes. Neck without JVD, neck was supple, trachea midline, thyroid was normal. Lungs clear bilaterally, normal air movement was noted. Heart exam notable for regular rhythm, normal sounds and absence of murmurs, rubs or gallops. Abdomen unremarkable and without evidence of organomegaly, masses, or abdominal aortic enlargement. Bowel sounds are present, abdomen is not distended. Extremities nonedematous, no cyanosis was noted, no clubbing was noted. Neuro: Cranial nerves II through XII are grossly intact, no focal motor deficits were noted, sensation to light touch and pinprick intact, motor exam 5/5 throughout. Psych: Patient is alert and oriented x3, he does not appear anxious or depressed, he does not appear agitated. Patient was discharged on 09/20/2019 in stable condition to follow-up outpatient with 180. - Physical Exam Vitals/I&O's: Vital Signs Temp Pulse Resp BP Pulse Ox 97.5 F L 97 18 137/90 H 98 09/20/19 11:01 09/20/19 11:01 09/20/19 11:01 09/20/19 11:01 09/20/19 11:01 Oxygen Delivery Method Room Air Weight: 59.8 kg Body Mass Index (BMI) 21.2 Intake and Output for Last 24 Hours 09/19/19 09/20/19 09/21/19 23:59 23:59 23:59 Intake Total 1800 / 1800 Balance 1800 / 1800 Discharge Activity: Return to Normal Activity Weight Bearing Status: Full weight bearing Home Medications: Medications to take at Discharge pantoprazole 40 mg tablet,delayed release 40 mg PO BID #60 tab 11/27/18 buspirone 15 mg tablet 15 mg PO QHS #90 tab 01/11/19 Buspirone HCl 30 mg PO DAILY 09/16/19 busPIRone [Buspar] 30 mg PO DAILY tab 09/20/19 Primary Care Physician: Alber Hernandez NP-C [Primary Care Provider] - Disposition: Home Minutes spent on discharge:: 31 Patient Condition:: Stable Medical Necessity - Tobacco Use Smoking Status: Current every day smoker Tobacco Use: Cigarettes Meaningful Use Info Meaningful Use Diagnoses (Choose all that apply): None applicable Inpatient E&M: 00670 Disch Hosp
== END 2019-09-20 11:30 | disposition home or self-care (01) | DRG 897 ==
LOC: ED 20:21 → MS3 20:58
PROVIDERS: Admitting Provider Family Medicine; Emergency Provider Emergency Medicine; PCP Nurse Practitioner Family; Visit Provider Internal Medicine
DX: F10.239 Alcohol dependence with withdrawal, unspecified (principal); F12.90 Cannabis use, unspecified, uncomplicated; F17.210 Nicotine dependence, cigarettes, uncomplicated; F41.9 Anxiety disorder, unspecified; F32.9 Major depressive disorder, single episode, unspecified; N52.9 Male erectile dysfunction, unspecified; Y90.5 Blood alcohol level of 100-119 mg/100 ml; Z82.3 Family history of stroke; Z82.49 Family history of ischemic heart disease and other diseases of the circulatory system; Z82.5 Family history of asthma and other chronic lower respiratory diseases
CPT/HCPCS: 80053; 80307; 80320; 85025; 99282; 99406; A4216; G0480

== ENCOUNTER → 2020-03-31 15:00 | Outpatient (CLI) | payer OTHER, SELFPAY ==
[2020-03-31 14:35] VITALS: BMI 20.3
[2020-03-31 16:55] LABS: Absolute Lymphocyte Count 1.95 X10^3/uL (0.83-4.51); Absolute Neutrophil Count 7.9 X10^3/uL (2.0-7.7); Basophil# 0.06 X10^3/uL; Basophil% 0.5 % (0-1); Eosinophil# 0.19 X10^3/uL; Eosinophils% 1.7 % (0-5); Hematocrit 40.5 % (40-54); Hemoglobin 13.3 g/dL (13.0-16.5); Lymphocyte # 1.95 X10^3/ul (4.0); Lymphocyte % 17.7 % (19-41); Mean Corp Hgb Conc 32.8 g/dL (32-36); Mean Corpuscular Hgb 31.5 pg (27.0-32.0); Mean Platelet Vol. 10.5 fl (6.2-12.0); Monocyte# 0.85 X10^3/uL; Monocyte% 7.7 % (0-10); NRBC Flagged by Analyzer 0 % (0-5); Neutrophil % 71.9 % (47-70); Platelet Count 354 K/mm3 (150-450); RBC Distribution Width CV 13.3 % (11.6-14.6); RBC Distribution Width SD 47.1 fl (35.1-43.9); Red Blood Count 4.22 M/mm3 (4.6-6.2)
[2020-03-31 17:09] LABS: ALB/GLOB Ratio 1.4 RATIO (0.9-2.4); AST(SGOT) 17 U/L (15-37); Alanine Aminotransfer ALT/SGPT 25 U/L (16-61); Albumin, Serum 4.2 g/dL (3.2-5.0); Alkaline Phosphatase 74 U/L (45-117); Anion Gap 5 (5-15); BUN 12 mg/dL (7-18); BUN/Creat Ratio 12.7 RATIO (10-20); Calcium,Total 8.8 mg/dL (8.5-10.1); Chloride 107 mmol/L (98-107); Cholesterol 174 mg/dL (200); Creatinine, Serum 0.95 mg/dL (0.70-1.30); EST Glomerular Filtration Rate 95 mL/min (>60); Est Glom Filt Rate - Afr Amer 115 mL/min (>60); Globulin 2.9 g/dL (2.2-4.2); Glucose 83 mg/dL (74-106); High Density Lipoprotein 71 mg/dL; Potassium 4.1 mmol/L (3.5-5.1); Protein, Total 7.1 g/dL (6.4-8.2); Sodium Level 139 mmol/L (136-145); Thyroid Stim Hormone (TSH) 0.54 uIU/mL (0.358-3.74); Triglycerides 104 mg/dL; Very Low Density Lipoprotein 21 mg/dL (5-40)
== END ==
LOC: BIMLAB 15:01
PROVIDERS: PCP Internal Medicine; Referring Provider Nurse Practitioner Family; Visit Provider Nurse Practitioner Family
DX: F41.9 Anxiety disorder, unspecified (principal); F10.20 Alcohol dependence, uncomplicated; F32.9 Major depressive disorder, single episode, unspecified; R79.89 Other specified abnormal findings of blood chemistry; Z72.0 Tobacco use
CPT/HCPCS: 36415; 80053; 80061; 84443; 85025

== ENCOUNTER 2020-07-24 14:57 | Inpatient (IN) | payer OTHER, SELFPAY ==
[2020-03-31 14:35] VITALS: BMI 20.3
[2020-07-24 14:58] VITALS: BP 147/92; PULSE 104; RESP 16; TEMP 35.7; O2SAT 99; BMI 20.9
--- NOTE | 2020-07-24 15:25 | EX.ED.SAOD ---
HPI History of Present Illness Chief Complaint: Substance Abuse Narrative Narrative: 40-year-old male presenting for detox. Patient states that he detoxed about a year ago and was on Vivitrol for several months. He states that after he stopped getting injections of this he relapsed. He is been drinking 4-5+ balls a day as well as twisted teas. He estimates the equivalent to be about 15 beers per day. Patient states that he does get withdrawal symptoms of shakes and generalized weakness as well as sweats. Is never had a withdrawal seizure. He admits to intermittent marijuana use. He denies any other drugs [facility] Medical History (Updated 07/24/20 @ 16:[address] Felicity Hurtado MD) Anemia Chronic bronchitis Diarrhea Fatigue Glaucoma Limb weakness Shoulder pain Home Medications buspirone 15 mg tablet 15 mg PO QHS #90 tab 03/31/20 [Rx Last Taken Unknown] buspirone 30 mg tablet 30 mg PO DAILY #90 tab 03/31/20 [Rx Last Taken 07/24/20] multivitamin 1 tab PO DAILY 07/24/20 [History Last Taken 07/24/20] Allergy/AdvReac Type Severity Reaction Status Date / Time tramadol Allergy seizures Verified 07/24/20 17:01 aspirin AdvReac Nausea Verified 07/24/20 15:00 NSAIDS (Non-Steroidal AdvReac Upset Verified 07/24/20 15:00 Anti-Inflamma Stomach nicotine patch Allergy Severe Hives Uncoded 07/24/20 15:00 Family History Father Alcoholism Cancer prostate Hypertension COPD (chronic obstructive pulmonary disease) CVA (cerebral vascular accident) Myocardial infarction, Onset Age: 46 Mother COPD (chronic obstructive pulmonary disease) Anxiety Cancer bone blood clots Grandmother Alcoholism Brother Alcoholism Hypertension Asthma younger brother Sister Alcoholism Social History Smoking Status: Current every day smoker alcohol intake: current alcohol intake frequency: a few times a week substance use type: does not use what type of physical activity do you participate in: none ROS ROS ED Constitutional Constitutional ED: Denies chills, fever(s) or sweats Eyes Eyes: Denies blurry vision or change in vision ENT ENT ED: Denies ear pain, rhinorrhea or sore throat Cardiovascular Cardiovascular: Denies chest pain, palpitations or racing heartbeat Respiratory/Chest Respiratory/Chest: Denies cough, dyspnea or sputum Gastrointestinal Gastrointestinal: Denies abdominal pain, constipation, diarrhea or vomiting Genitourinary Genitourinary ED: Denies dysuria, hematuria or urinary frequency Musculoskeletal Musculoskeletal: Denies arthralgias, myalgias or neck pain Integumentary Denies abscess, Abrasions or rash Neurologic Neurologic: Denies headache(s), paresthesias or weakness Psychiatric Psychiatric: Denies anxiety, depression, suicidal ideation or suicidal thoughts Endocrine Endocrinology: Denies polydipsia or polyuria EXAM Physical Exam Const Vital Signs: 07/24/20 14:58 07/24/20 16:24 07/24/20 18:29 Temperature 96.2 F L 97.6 F L 98.3 F Temperature Source Temporal Temporal Oral Pulse Rate 104 H 83 77 Respiratory Rate 16 14 18 Blood Pressure 147/92 H 131/92 H 154/97 H Blood Pressure Mean 110 105 116 Blood Pressure Source Monitor Blood Pressure Position Semi-Fowlers Blood Pressure Location Right Arm Pulse Ox 99 99 99 Oxygen Delivery Method Room Air Room Air Room Air Positive well nourished General Appearance ED: NAD; Negative for pallor HEENT Reports normocephalic, head/scalp atraumatic and moist mucous membranes Eyes PERRL and EOMs intact bilaterally Neck no lymphadenopathy and supple Chest Wall inspection of chest normal and palpation of chest normal Resp normal respiratory effort and clear to auscultation bilaterally Auscultation: Negative for rales, rhonchi or wheezes Cardio regular rhythm Rate: tachycardic GI normal to inspection, nondistended, normoactive bowel sounds Auscultation: normoactive bowel sounds Palpation: soft Narrative: Deferred Extremity normal to inspection General Extremety ED: Negative for edema or tenderness General Extremity: Negative for edema Neuro oriented x3 and CN's II-XII intact bilaterally Sensorium / Orientation: alert Motor Exam: strength 5/5 throughout Psych mental status grossly normal Attitude: No agitated Skin no rashes or lesions noted and no wounds General Skin Exam: Negative for jaundice or pallor MDM MDM MDM Narrative Medical decision making narrative: Patient presented for alcohol detox. He was slightly tachycardic and hypertensive on arrival. He was given 1 mg of IV Ativan. Lab work is unremarkable. EtOH is negative. Patient is positive for cannabinoids. Discussed with hospitalist for alcohol detox. Patient will be admitted in stable condition. Impression: 1. EtOH withdrawal Lab Data Attestation: I reviewed the patient's lab results. Labs: Laboratory Results - last 24 hr 07/24/20 07/24/20 07/24/20 15:20 15:20 15:20 WBC 9.7 RBC 4.33 L Hgb 14.8 Hct 42.6 MCV 98.4 H MCH 34.2 H MCHC 34.7 RDW Std Deviation 44.6 H RDW Coeff of Lexie 12.2 Plt Count 326 MPV 9.7 Immature Gran % (Auto) 0.300 Neut % (Auto) 70.5 H Lymph % (Auto) 16.5 L [place] % (Auto) 9.3 Eos % (Auto) 2.7 Baso % (Auto) 0.7 Absolute Neuts (auto) 6.8 Absolute Lymphs (auto) 1.60 Nucleated RBC % 0 Sodium 137 Potassium 3.6 Chloride 103 Carbon Dioxide 27.0 Anion Gap 7 BUN 18 Creatinine 1.28 Estim Creat Clear Calc 65.26 Est GFR (MDRD) Af Amer 81 Est GFR (MDRD) Non-Af 67 BUN/Creatinine Ratio 14.1 Glucose 88 Calcium 9.0 Phosphorus Magnesium Total Bilirubin 0.60 AST 22 ALT 24 Alkaline Phosphatase 98 Total Protein 7.6 Albumin 4.3 Globulin 3.3 Albumin/Globulin Ratio 1.3 Lipase 154 Urine Opiates Screen Urine Methadone Screen Ur Barbiturates Screen Ur Phencyclidine Scrn Ur Amphetamines Screen U Methamphetamin-MDMA U Benzodiazepines Scrn Urine Cocaine Screen U Cannabinoids Screen Ur Drug Screen Comment Ethyl Alcohol < 3.0 07/24/20 07/24/20 15:20 15:35 WBC RBC Hgb Hct MCV MCH MCHC RDW Std Deviation RDW Coeff of Lexie Plt Count MPV Immature Gran % (Auto) Neut % (Auto) Lymph % (Auto) Lander % (Auto) Eos % (Auto) Baso % (Auto) Absolute Neuts (auto) Absolute Lymphs (auto) Nucleated RBC % Sodium Potassium Chloride Carbon Dioxide Anion Gap BUN Creatinine Estim Creat Clear Calc Est GFR (MDRD) Af Amer Est GFR (MDRD) Non-Af BUN/Creatinine Ratio Glucose Calcium Phosphorus 2.8 Magnesium 2.2 Total Bilirubin AST ALT Alkaline Phosphatase Total Protein Albumin Globulin Albumin/Globulin Ratio Lipase Urine Opiates Screen NEGATIVE Urine Methadone Screen NEGATIVE Ur Barbiturates Screen NEGATIVE Ur Phencyclidine Scrn NEGATIVE Ur Amphetamines Screen NEGATIVE U Methamphetamin-MDMA NEGATIVE U Benzodiazepines Scrn NEGATIVE Urine Cocaine Screen NEGATIVE U Cannabinoids Screen POSITIVE H Ur Drug Screen Comment Ethyl Alcohol Discharge Plan Disposition Disposition: Acute Care Hospital [facility] Discharge Date/Time: 07/24/20 17:28
[2020-07-24] MEDS: LORazepam 2 MG/ML Syringe 1 MG IV (15:33)
[2020-07-24 15:36] LABS: Absolute Neutrophil Count 6.8 X10^3/uL (2.0-7.7); Basophil# 0.07 X10^3/uL; Basophil% 0.7 % (0-1); Eosinophil# 0.26 X10^3/uL; Eosinophils% 2.7 % (0-5); Hematocrit 42.6 % (40-54); Hemoglobin 14.8 g/dL (13.0-16.5); Lymphocyte % 16.5 % (19-41); Mean Corp Hgb Conc 34.7 g/dL (32-36); Mean Corpuscular Hgb 34.2 pg (27.0-32.0); Mean Corpuscular Volume 98.4 fL (80-94); Mean Platelet Vol. 9.7 fl (6.2-12.0); Monocyte% 9.3 % (0-10); NRBC Flagged by Analyzer 0 % (0-5); Neutrophil # 6.82 X10^3/uL (2.7-7.7); Neutrophil % 70.5 % (47-70); Platelet Count 326 K/mm3 (150-450); RBC Distribution Width CV 12.2 % (11.6-14.6); RBC Distribution Width SD 44.6 fl (35.1-43.9); Red Blood Count 4.33 M/mm3 (4.6-6.2); White Blood Count 9.7 K/mm3 (4.4-11.0)
--- NOTE | 2020-07-24 15:39 | CM.ED ---
LUCIAN Note: Referral Source: Case Find for substance abuse Referral Reason: Admitted for substance abuse. LUCIAN met with patient. Patient said that he is going into the [facility]. He was advised of no visitors and also advised of no phone. Patient was advised of contract that he has to sign. Patient said that he has been here approximately 1 year ago.Patient said I did well on the vivitrol... until I stopped. Patient said that this week has been difficult with the of her stepmom and his dad having to go back for radiation . Patient said that he is unsure how much time his father has left'. Patient said that his encouraged him to come to [facility]. SW will contact Treatment Navigator. SW called Treatment Navigator and left voice mail for her to return call for update on status. Janneth WEBER
[2020-07-24 15:57] LABS: ALB/GLOB Ratio 1.3 RATIO (0.9-2.4); AST(SGOT) 22 U/L (15-37); Alanine Aminotransfer ALT/SGPT 24 U/L (16-61); Albumin, Serum 4.3 g/dL (3.2-5.0); Alkaline Phosphatase 98 U/L (45-117); Anion Gap 7 (5-15); BUN 18 mg/dL (7-18); BUN/Creat Ratio 14.1 RATIO (10-20); Chloride 103 mmol/L (98-107); Creatinine, Serum 1.28 mg/dL (0.70-1.30); EST Glomerular Filtration Rate 67 mL/min (>60); Est Glom Filt Rate - Afr Amer 81 mL/min (>60); Estimated Creatinine Clearance 65.26 ml/min; Globulin 3.3 g/dL (2.2-4.2); Glucose 88 mg/dL (74-106); Lipase 154 U/L (73-393); Potassium 3.6 mmol/L (3.5-5.1); Protein, Total 7.6 g/dL (6.4-8.2); Sodium Level 137 mmol/L (136-145)
[2020-07-24 16:01] LABS: Amphetamine Urine VISTA NEGATIVE (<1000 ng/mL); Barbiturate Urine VISTA NEGATIVE (< 200 ng/mL); Benzodiazepine Urine VISTA NEGATIVE (< 200 ng/mL); Cocaine Urine VISTA NEGATIVE (< 300 ng/mL); Ecstacy Urine VISTA NEGATIVE (< 500 ng/mL); Methadone Urine VISTA NEGATIVE (< 300 ng/mL); PCP Urine VISTA NEGATIVE (< 25 ng/mL); THC Urine VISTA POSITIVE (< 50 ng/mL); Vista UDS pH Range 6
--- NOTE | 2020-07-24 16:15 | HP.PCM.HOS_ITS ---
HPI - General HPI Narrative SUNIL DE LA CRUZ, is a 40 M with a PMH as outlined who presents for alcohol detox. He says he drinks about 10-15 beers daily, and says he was on vivitriol for several months after going through detox about a year ago. He states he relapsed after he stopped getting his Vivitrol injections. He admits to withdrawal symptoms such as shakes and tremors as well as generalized weakness.He has never had a withdrawal seizure though, and also admits to intermittent marijuana use. Vitals in the ED show blood pressure 147/92, pulse rate of 104, respiratory of 16 and temperature of 96.21 saturating at 99% on room air. CBC showed hemoglobin of 14.8 and WBC of 9.7 with platelets of 326. Urine tox was positive for cannabinoids and serum alcohol level is pending. He has been admitted to be managed for acute alcohol withdrawal. [facility] Medical History (Updated 07/24/20 @ 16:[address] Felicity Hurtado MD) Anemia Chronic bronchitis Diarrhea Fatigue Glaucoma Limb weakness Shoulder pain Home Medications buspirone 15 mg tablet 15 mg PO QHS #90 tab 03/31/20 [Rx Last Taken Unknown] buspirone 30 mg tablet 30 mg PO DAILY #90 tab 03/31/20 [Rx Last Taken Unknown] Allergy/AdvReac Type Severity Reaction Status Date / Time tramadol Allergy Other Verified 07/24/20 15:00 aspirin AdvReac Nausea Verified 07/24/20 15:00 NSAIDS (Non-Steroidal AdvReac Upset Verified 07/24/20 15:00 Anti-Inflamma Stomach nicotine patch Allergy Severe Hives Uncoded 07/24/20 15:00 Family History Father Alcoholism Cancer prostate Hypertension COPD (chronic obstructive pulmonary disease) CVA (cerebral vascular accident) Myocardial infarction, Onset Age: 46 Mother COPD (chronic obstructive pulmonary disease) Anxiety Cancer bone blood clots Grandmother Alcoholism Brother Alcoholism Hypertension Asthma younger brother Sister Alcoholism Social History Smoking Status: Current every day smoker alcohol intake: current alcohol intake frequency: a few times a week substance use type: does not use what type of physical activity do you participate in: none ROS Constitutional Constitutional: Denies anorexia, chills, fatigue, malaise, night sweats or weakness Eyes Eyes: Denies blurry vision or change in vision ENT HEENT: Denies dysphagia, headache(s) or sore throat Cardiovascular Cardiovascular: Denies chest pain, dyspnea on exertion, lightheadedness, orthopnea, palpitations or rapid heart rate Respiratory/Chest Respiratory/Chest: Denies cough, dyspnea, hemoptysis, shortness of breath at rest or shortness of breath with exertion Gastrointestinal Gastrointestinal: Denies abdominal pain, diarrhea, nausea or vomiting Genitourinary Genitourinary: Denies burning urination or urinary frequency Musculoskeletal Musculoskeletal: Denies arthralgias Neurologic Neurologic: Reports abnormal gait; Denies confusion, dizziness, focal weakness, paresthesias, seizure-like activity or seizures Psychiatric Psychiatric: Denies anxiety Hematologic/Lymphatic Hematologic/Lymphatic: Denies anemia Vital Signs Vital Signs Vital Signs: 07/24/20 14:58 Temperature 96.2 F L Temperature Source Temporal Pulse Rate 104 H Respiratory Rate 16 Blood Pressure 147/92 H Blood Pressure Mean 110 Pulse Ox 99 Oxygen Delivery Method Room Air Physical Exam Const alert, oriented x3 and no apparent distress General Appearance: cooperative HEENT normocephalic, head/scalp atraumatic, hearing grossly normal bilaterally and moist oral mucous membranes Eyes PERRL, EOMs intact bilaterally and conjunctivae normal Neck no lymphadenopathy, supple and no JVD Resp normal respiratory effort and clear to auscultation bilaterally Cardio regular rate, regular rhythm, S1 normal heart sound, S2 normal heart sound and no murmurs GI normal to inspection, nondistended, normoactive bowel sounds, soft to palpation, non-tender and non-distended Extremity normal to inspection, full ROM and no clubbing, cyanosis or edema Peripheral Pulses: Yes pulses 2+ throughout Skin no rashes or lesions noted Neuro oriented x3 Sensorium / Orientation: awake and alert Speech: speech normal Motor Exam: strength 5/5 throughout Psych affect normal Lab / Micro Data Result Diagrams: 07/24/20 15:20 07/24/20 15:20 Labs: Laboratory Results - last 24 hr 07/24/20 07/24/20 07/24/20 15:20 15:20 15:35 WBC 9.7 RBC 4.33 L Hgb 14.8 Hct 42.6 MCV 98.4 H MCH 34.2 H MCHC 34.7 RDW Std Deviation 44.6 H RDW Coeff of Lexie 12.2 Plt Count 326 MPV 9.7 Immature Gran % (Auto) 0.300 Neut % (Auto) 70.5 H Lymph % (Auto) 16.5 L [place] % (Auto) 9.3 Eos % (Auto) 2.7 Baso % (Auto) 0.7 Absolute Neuts (auto) 6.8 Absolute Lymphs (auto) 1.60 Nucleated RBC % 0 Sodium 137 Potassium 3.6 Chloride 103 Carbon Dioxide 27.0 Anion Gap 7 BUN 18 Creatinine 1.28 Estim Creat Clear Calc 65.26 Est GFR (MDRD) Af Amer 81 Est GFR (MDRD) Non-Af 67 BUN/Creatinine Ratio 14.1 Glucose 88 Calcium 9.0 Total Bilirubin 0.60 AST 22 ALT 24 Alkaline Phosphatase 98 Total Protein 7.6 Albumin 4.3 Globulin 3.3 Albumin/Globulin Ratio 1.3 Lipase 154 Urine Opiates Screen NEGATIVE Urine Methadone Screen NEGATIVE Ur Barbiturates Screen NEGATIVE Ur Phencyclidine Scrn NEGATIVE Ur Amphetamines Screen NEGATIVE U Methamphetamin-MDMA NEGATIVE U Benzodiazepines Scrn NEGATIVE Urine Cocaine Screen NEGATIVE U Cannabinoids Screen POSITIVE H Ur Drug Screen Comment Assessment & Plan Assessment/Plan (1) Desire for detoxification: (2) Acute, mixed level of activity, alcohol withdrawal delirium: PLAN: #Acute alcohol withdawal * Admit to MedSurg. * Start on alcohol withdrawal protocol with phenobarbital. CIWA protocol * Monitor CIWA score. * P.o. thiamine, multivitamin and folic acid * #Anxiety and depression: On BuSpar DVT prophylaxis: low risk, encourage to ambulate Visit Charges Inpatient E&M: 44713 Init Hosp L3
[2020-07-24 16:21] LABS: Alcohol, Blood (Medical)-Serum < 3.0 mg/dL
[2020-07-24 16:24] VITALS: BP 131/92; PULSE 83; RESP 14; TEMP 36.4; O2SAT 99
--- NOTE | 2020-07-24 16:28 | NURSING ---
MED SURG KORAM ETOH DETOX
[2020-07-24 16:59] VITALS: BMI 22.5
[2020-07-24 18:29] VITALS: BP 154/97; PULSE 77; RESP 18; TEMP 36.8; O2SAT 99
[2020-07-24 20:21] VITALS: BP 138/92; PULSE 67; RESP 18; TEMP 36.9; O2SAT 97
[2020-07-24] MEDS: Phenobarbital 32.4 MG Tablet 64.8 MG PO ×2 (20:25→23:37)
[2020-07-24] MEDS: traZODone 100 MG Tablet PO (20:27)
[2020-07-24] MEDS: busPIRone 15 MG TABLET PO (20:35)
[2020-07-24 20:52] LABS: Magnesium 2.2 mg/dL (1.6-2.6); Phosphorus 2.8 mg/dL (2.5-4.9)
[2020-07-25 03:24] VITALS: BP 135/96; PULSE 62; RESP 16; TEMP 36.4; O2SAT 100
[2020-07-25] MEDS: Phenobarbital 32.4 MG Tablet 64.8 MG PO ×5 (03:31→21:45)
[2020-07-25] MEDS: Gabapentin 300 MG Capsule PO ×2 (03:31→21:45)
[2020-07-25 06:56] LABS: Absolute Lymphocyte Count 2.22 X10^3/uL (0.83-4.51); Absolute Neutrophil Count 3.8 X10^3/uL (2.0-7.7); Basophil# 0.05 X10^3/uL; Basophil% 0.7 % (0-1); Eosinophil# 0.38 X10^3/uL; Eosinophils% 5.3 % (0-5); Hematocrit 40.2 % (40-54); Hemoglobin 13.9 g/dL (13.0-16.5); Lymphocyte # 2.22 X10^3/ul (0.83-4.51); Mean Corp Hgb Conc 34.6 g/dL (32-36); Mean Corpuscular Volume 98.3 fL (80-94); Monocyte# 0.73 X10^3/uL; Monocyte% 10.2 % (0-10); NRBC Flagged by Analyzer 0 % (0-5); Neutrophil # 3.76 X10^3/uL (2.7-7.7); Neutrophil % 52.5 % (47-70); Platelet Count 274 K/mm3 (150-450); RBC Distribution Width CV 12.1 % (11.6-14.6); RBC Distribution Width SD 44.2 fl (35.1-43.9); Red Blood Count 4.09 M/mm3 (4.6-6.2); White Blood Count 7.2 K/mm3 (4.4-11.0)
[2020-07-25 07:19] LABS: ALB/GLOB Ratio 1.2 RATIO (0.9-2.4); AST(SGOT) 23 U/L (15-37); Alanine Aminotransfer ALT/SGPT 20 U/L (16-61); Albumin, Serum 3.5 g/dL (3.2-5.0); Alkaline Phosphatase 86 U/L (45-117); Anion Gap 8 (5-15); BUN 18 mg/dL (7-18); Calcium,Total 8.4 mg/dL (8.5-10.1); Chloride 105 mmol/L (98-107); EST Glomerular Filtration Rate 100 mL/min (>60); Est Glom Filt Rate - Afr Amer 121 mL/min (>60); Estimated Creatinine Clearance 99.96 ml/min; Globulin 2.8 g/dL (2.2-4.2); Glucose 79 mg/dL (74-106); Potassium 4.1 mmol/L (3.5-5.1); Protein, Total 6.3 g/dL (6.4-8.2); Sodium Level 137 mmol/L (136-145)
--- NOTE | 2020-07-25 07:51 | PN.HOSP_ITS ---
Subjective Subjective Patient has chronic alcohol use drinks about a gallon, tequila every day for last 20 years. Seems patient has history of cirrhosis as he had EGD in the past and was found to have esophageal varices as per patient about 5 years ago. According to him, he did not had banding and has not had bleeding since then. Denies ascites, bleeding but hard to verify encephalopathy as patient is alcoholic. Objective Data Objective Data Vital Signs: Vital Signs Temp Pulse Resp BP Pulse Ox 97.5 F L 62 16 135/96 H 100 07/25/20 03:24 07/25/20 03:24 07/25/20 03:24 07/25/20 03:24 07/25/20 03:24 Oxygen Delivery Method Room Air Weight: 140 lb Body Mass Index (BMI) 22.5 Intake & Output: Intake and Output for Last 24 Hours 07/23/20 07/24/20 07/25/20 23:59 23:59 23:59 Intake Total 400 / 400 Balance 400 / 400 Lab / Micro Data Result Diagrams: 07/25/20 05:13 07/25/20 05:13 Labs: Laboratory Results - last 24 hr 07/24/20 07/24/20 07/24/20 15:20 15:20 15:20 WBC 9.7 RBC 4.33 L Hgb 14.8 Hct 42.6 MCV 98.4 H MCH 34.2 H MCHC 34.7 RDW Std Deviation 44.6 H RDW Coeff of Lexie 12.2 Plt Count 326 MPV 9.7 Immature Gran % (Auto) 0.300 Neut % (Auto) 70.5 H Lymph % (Auto) 16.5 L Brooks % (Auto) 9.3 Eos % (Auto) 2.7 Baso % (Auto) 0.7 Absolute Neuts (auto) 6.8 Absolute Lymphs (auto) 1.60 Nucleated RBC % 0 Sodium 137 Potassium 3.6 Chloride 103 Carbon Dioxide 27.0 Anion Gap 7 BUN 18 Creatinine 1.28 Estim Creat Clear Calc 65.26 Est GFR (MDRD) Af Amer 81 Est GFR (MDRD) Non-Af 67 BUN/Creatinine Ratio 14.1 Glucose 88 Calcium 9.0 Phosphorus Magnesium Total Bilirubin 0.60 AST 22 ALT 24 Alkaline Phosphatase 98 Total Protein 7.6 Albumin 4.3 Globulin 3.3 Albumin/Globulin Ratio 1.3 Lipase 154 Urine Opiates Screen Urine Methadone Screen Ur Barbiturates Screen Ur Phencyclidine Scrn Ur Amphetamines Screen U Methamphetamin-MDMA U Benzodiazepines Scrn Urine Cocaine Screen U Cannabinoids Screen Ur Drug Screen Comment Ethyl Alcohol < 3.0 07/24/20 07/24/20 07/25/20 15:20 15:35 05:13 WBC 7.2 RBC 4.09 L Hgb 13.9 Hct 40.2 MCV 98.3 H MCH 34.0 H MCHC 34.6 RDW Std Deviation 44.2 H RDW Coeff of Lexie 12.1 Plt Count 274 MPV 10.0 Immature Gran % (Auto) 0.300 Neut % (Auto) 52.5 Lymph % (Auto) 31.0 Brooks % (Auto) 10.2 H Eos % (Auto) 5.3 H Baso % (Auto) 0.7 Absolute Neuts (auto) 3.8 Absolute Lymphs (auto) 2.22 Nucleated RBC % 0 Sodium Potassium Chloride Carbon Dioxide Anion Gap BUN Creatinine Estim Creat Clear Calc Est GFR (MDRD) Af Amer Est GFR (MDRD) Non-Af BUN/Creatinine Ratio Glucose Calcium Phosphorus 2.8 Magnesium 2.2 Total Bilirubin AST ALT Alkaline Phosphatase Total Protein Albumin Globulin Albumin/Globulin Ratio Lipase Urine Opiates Screen NEGATIVE Urine Methadone Screen NEGATIVE Ur Barbiturates Screen NEGATIVE Ur Phencyclidine Scrn NEGATIVE Ur Amphetamines Screen NEGATIVE U Methamphetamin-MDMA NEGATIVE U Benzodiazepines Scrn NEGATIVE Urine Cocaine Screen NEGATIVE U Cannabinoids Screen POSITIVE H Ur Drug Screen Comment Ethyl Alcohol 07/25/20 05:13 WBC RBC Hgb Hct MCV MCH MCHC RDW Std Deviation RDW Coeff of Lexie Plt Count MPV Immature Gran % (Auto) Neut % (Auto) Lymph % (Auto) Brooks % (Auto) Eos % (Auto) Baso % (Auto) Absolute Neuts (auto) Absolute Lymphs (auto) Nucleated RBC % Sodium 137 Potassium 4.1 Chloride 105 Carbon Dioxide 24.0 Anion Gap 8 BUN 18 Creatinine 0.90 Estim Creat Clear Calc 99.96 Est GFR (MDRD) Af Amer 121 Est GFR (MDRD) Non-Af 100 BUN/Creatinine Ratio 20.0 Glucose 79 Calcium 8.4 L Phosphorus Magnesium Total Bilirubin 0.90 AST 23 ALT 20 Alkaline Phosphatase 86 Total Protein 6.3 L Albumin 3.5 Globulin 2.8 Albumin/Globulin Ratio 1.2 Lipase Urine Opiates Screen Urine Methadone Screen Ur Barbiturates Screen Ur Phencyclidine Scrn Ur Amphetamines Screen U Methamphetamin-MDMA U Benzodiazepines Scrn Urine Cocaine Screen U Cannabinoids Screen Ur Drug Screen Comment Ethyl Alcohol Physical Exam Narrative General: Alert, Oriented x3, Cooperative HEENT: Atraumatic, PERRLA, EOMI, Normocephalic Oral: No Gingival or Mucosal Lesions/ Ulcerations Neck: Supple, No JVD, Negative Carotid Bruits Lungs: Air entry diminished in bilateral lung bases. No crepitation/rhonchi Cardiovascular: Regular rate, Regular Rhythm, Normal S1, Normal S2, No murmurs Abdomen: Bowel Sounds Present, Soft, Non Tender, Non-Distended. Spleen palpable. Liver not enlarged probably shrunken. No palpable ascites. : No renal angle tenderness. No suprapubic tenderness. Extremities: No edema, Capillary Refill Less than 3 Seconds Skin: No rashes, No breakdown Musculoskeletal: No Tenderness to Palpation of Joints or Extremities. No obvious tremors. Neurological: Cranial nerves II-XII grossly intact, Deep Tendon Reflexes 2+/4 and Symmetrical, Neuro grossly intact Psych/Mental Status: Restless and anxious. Assessment & Plan Assessment/Plan (1) Acute, mixed level of activity, alcohol withdrawal delirium: (2) Withdrawn from alcohol detoxification program: PLAN: ?#Acute alcohol withdawal with history of chronic alcohol use, dependence and tolerance for last 20 years: Patient is being admitted on MedSurg floor. On CIWA protocol. On phenobarbital based on other supportive medications as per protocol. On thiamine, folic acid and multivitamin. 2. Possible alcoholic cirrhosis with history of esophageal varices suggestive of portal hypertension: Currently patient does not have palpable ascites. Right upper quadrant sonogram ordered for Monday a.m. Alcohol cessation advised. 3. Anxiety and depression, chronic marijuana use and dependence: On BuSpar. DVT prophylaxis: low risk, encourage to ambulate Visit Charges Inpatient E&M: 72032 [facility] [[email or web address]] Hosp L2
[2020-07-25] MEDS: Thiamine Hydrochloride 100 MG Tablet PO (07:56)
[2020-07-25] MEDS: Folic Acid 1 MG Tablet PO (07:56)
[2020-07-25] MEDS: Multivitamins,Therapeutic Tablet 1 TABLET PO (07:56)
[2020-07-25] MEDS: busPIRone 15 MG TABLET 30 MG PO (07:58)
[2020-07-25 08:03] VITALS: BP 122/80; PULSE 75; RESP 18; TEMP 36.7; O2SAT 99
[2020-07-25] MEDS: Loperamide 2 MG Capsule PO (12:11)
[2020-07-25] MEDS: LORazepam 1 MG Tablet 2 MG PO ×2 (12:12→16:33)
[2020-07-25 12:15] VITALS: BP 139/86; PULSE 82; RESP 18; TEMP 36.7; O2SAT 100
[2020-07-25 16:53] VITALS: BP 121/68; PULSE 86; RESP 18; TEMP 36.7; O2SAT 95
[2020-07-25 21:40] VITALS: BP 131/91; PULSE 83; RESP 18; TEMP 36.7; O2SAT 97
[2020-07-25] MEDS: busPIRone 15 MG TABLET PO (21:45)
[2020-07-25] MEDS: traZODone 100 MG Tablet PO (21:45)
[2020-07-26 05:13] VITALS: BP 105/67; PULSE 73; RESP 16; TEMP 36.8; O2SAT 97
[2020-07-26] MEDS: Phenobarbital 32.4 MG Tablet 64.8 MG PO ×4 (05:16→17:00)
[2020-07-26] MEDS: Multivitamins,Therapeutic Tablet 1 TABLET PO (08:25)
[2020-07-26] MEDS: Folic Acid 1 MG Tablet PO (08:25)
[2020-07-26] MEDS: Thiamine Hydrochloride 100 MG Tablet PO (08:26)
[2020-07-26] MEDS: busPIRone 15 MG TABLET 30 MG PO (08:26)
[2020-07-26 08:59] VITALS: BP 118/86; PULSE 81; RESP 18; TEMP 36.9; O2SAT 96
--- NOTE | 2020-07-26 10:10 | PN.HOSP_ITS ---
Subjective Subjective Patient is comfortable. Sleeping in the morning. No seizure or shaking or tremors. Objective Data Objective Data Vital Signs: Vital Signs Temp Pulse Resp BP Pulse Ox 98.4 F 81 18 118/86 H 96 07/26/20 08:59 07/26/20 08:59 07/26/20 08:59 07/26/20 08:59 07/26/20 08:59 Oxygen Delivery Method Room Air Weight: 139 lb 15.896 oz Body Mass Index (BMI) 22.5 Intake & Output: Intake and Output for Last 24 Hours 07/24/20 07/25/20 07/26/20 23:59 23:59 23:59 Intake Total 2700 / 2700 240 / 240 Balance 2700 / 2700 240 / 240 Lab / Micro Data Result Diagrams: 07/25/20 05:13 07/25/20 05:13 Physical Exam Narrative General: Alert, Oriented x3, Cooperative HEENT: Atraumatic, PERRLA, EOMI, Normocephalic Oral: No Gingival or Mucosal Lesions/ Ulcerations Neck: Supple, No JVD, Negative Carotid Bruits Lungs: Air entry diminished in bilateral lung bases. No crepitation/rhonchi Cardiovascular: Regular rate, Regular Rhythm, Normal S1, Normal S2, No murmurs Abdomen: Bowel Sounds Present, Soft, Non Tender, Non-Distended. Spleen palpable . Liver not enlarged. No palpable ascites. : No renal angle tenderness. No suprapubic tenderness. Extremities: No edema, Capillary Refill Less than 3 Seconds Skin: No rashes, No breakdown Musculoskeletal: No Tenderness to Palpation of Joints or Extremities. No obvious tremors. Neurological: Cranial nerves II-XII grossly intact, Deep Tendon Reflexes 2+/4 and Symmetrical, Neuro grossly intact Psych/Mental Status: Restless and anxious. Const General Appearance: cooperative HEENT normocephalic and hearing grossly normal bilaterally Assessment & Plan Assessment/Plan (1) Acute, mixed level of activity, alcohol withdrawal delirium: (2) Withdrawn from alcohol detoxification program: PLAN: ?1. Acute alcohol withdawal with history of chronic alcohol use, dependence and tolerance for last 20 years: Patient is being admitted on MedSurg floor. On CIWA protocol. On phenobarbital based on other supportive medications as per protocol. On thiamine, folic acid and multivitamin. 07/26 he drinks a gallon of tequila every day. No seizures or hallucinations. Continue same treatment. 2. Possible alcoholic cirrhosis with history of esophageal varices suggestive of portal hypertension: Currently patient does not have palpable ascites. Right upper quadrant sonogram ordered for Monday a.m. Alcohol cessation advised. 3. Anxiety and depression, chronic marijuana use and dependence: On BuSpar. DVT prophylaxis: low risk, encourage to ambulate Visit Charges Inpatient E&M: 39686 Subs Hosp L2
[2020-07-26] MEDS: LORazepam 1 MG Tablet 2 MG PO (13:43)
[2020-07-26] MEDS: Gabapentin 300 MG Capsule PO (13:43)
[2020-07-26 14:00] VITALS: BP 125/82; PULSE 98; RESP 18; TEMP 36.7; O2SAT 98
[2020-07-26 22:15] VITALS: BP 121/81; PULSE 85; RESP 16; TEMP 36.7; O2SAT 100
[2020-07-26] MEDS: busPIRone 15 MG TABLET PO (22:15)
[2020-07-27] MEDS: Phenobarbital 32.4 MG Tablet 64.8 MG PO ×3 (00:21→09:32)
[2020-07-27 05:27] VITALS: BP 119/82; PULSE 78; RESP 16; TEMP 36.4; O2SAT 99
[2020-07-27 09:18] VITALS: BP 136/89; PULSE 96; RESP 18; TEMP 36.7; O2SAT 100
--- NOTE | 2020-07-27 09:18 | PCM.DC ---
Discharge Instructions Diet Discharge Diet: No restrictions Activity Discharge Activity: May Not Drive Follow Up Care Test Results: Test results from this visit will be discussed in further detail at your follow-up appointment, if applicable. Discharge Plan Admission Admit Date/Time: 07/24/20 19:50 Primary Reason for Your Visit: Acute alcohol withdrawal Attending Provider: Bharat Stevenson Primary Care Provider: Alebr Hernandez NP Discharge Orders/Prescriptions Prescriptions: New thiamine HCl (vitamin B1) [Vitamin B-1] 100 mg Tablet 100 mg PO DAILYCM Qty: 30 RF: 0 nicotine 21 mg/24 hr Patch 24 Hour 21 mg transdermal DAILY Qty: 30 RF: 0 folic acid 1 mg Tablet 1 mg PO DAILY@0800 Qty: 30 RF: 0 Continued buspirone 15 mg tablet 15 mg PO QHS Qty: 90 RF: 1 buspirone 30 mg tablet 30 mg PO DAILY Qty: 90 RF: 1 multivitamin Tablet 1 tab PO DAILY RF: 0 Referrals / Follow Up: Alber Hernandez NP, PERFORM[employer] MANAGER-C [Primary Care Provider] - Disposition Disposition (needs filled in before D/C Order can be placed): Home, self care
[2020-07-27] MEDS: Folic Acid 1 MG Tablet PO (09:21)
[2020-07-27] MEDS: Thiamine Hydrochloride 100 MG Tablet PO (09:21)
[2020-07-27] MEDS: Multivitamins,Therapeutic Tablet 1 TABLET PO (09:22)
--- NOTE | 2020-07-27 09:22 | DS.PCM_ITS ---
Providers Date of Admission: 07/24/20 Primary Care Physician: Alber Hernandez NP-C Reason For Visit: ETOH DETOX Diagnosis Discharge Diagnosis (1) Acute, mixed level of activity, alcohol withdrawal delirium: Status: Acute Code(s): F10.231 - Alcohol dependence with withdrawal delirium Medications at Discharge Home Medications buspirone 15 mg tablet 15 mg PO QHS #90 tab 03/31/20 buspirone 30 mg tablet 30 mg PO DAILY #90 tab 03/31/20 multivitamin 1 tab PO DAILY 07/24/20 folic acid 1 mg PO DAILY@0800 #30 tab 07/27/20 nicotine 21 mg TRANSDERMAL DAILY #30 ea 07/27/20 thiamine HCl (vitamin B1) [Vitamin B-1] 100 mg PO DAILYCM #30 tab 07/27/20 Hospital Course Summary of Care Provided Hospital Course: This 32-year-old gentleman with history of chronic alcohol use disorder with a gallon of tequila every day for last 20 years. Patient was admitted with medical stabilization of acute alcohol withdrawal syndrome. On CIWA protocol. On phenobarbital based other supportive medications and thiamine, folic acid and multivitamin. Patient did not had any seizures or hallucination. It seems patient has history of cirrhosis as he had EGD in the past and was found to have esophageal varices as per patient about 5 years ago.? According to him, he did not had banding and has not had bleeding since then. His diagnosis and assessment and plan as follows ?1. Acute alcohol withdawal with history of chronic alcohol use, dependence and tolerance for last 20 years: 2.? Possible alcoholic cirrhosis with history of esophageal varices suggestive of portal hypertension: Follow with PCP for further work-up with ultrasound and advised alcohol abstinence. 3.? Anxiety and depression, chronic marijuana use and dependence: On BuSpar. Discharge medication reconciliation done. Discharge follow-up instructions completed. Discharge process discussed with the patient and all questions were answered to patient's satisfaction. Total time spent, exact 35 minutes on discharge meds reconciliation, examination, coordination of care with nurses and ancillary staff, review of imaging and blood test and discussion with the patient on follow-up instructions Physical Exam Narrative General: Alert, Oriented x3, Cooperative HEENT: Atraumatic, PERRLA, EOMI, Normocephalic Oral: No Gingival or Mucosal Lesions/ Ulcerations Neck: Supple, No JVD, Negative Carotid Bruits Lungs: Air entry diminished in bilateral lung bases. No crepitation/rhonchi Cardiovascular: Regular rate, Regular Rhythm, Normal S1, Normal S2, No murmurs Abdomen: Bowel Sounds Present, Soft, Non Tender, Non-Distended. Spleen palpable. No ascites. : No renal angle tenderness. No suprapubic tenderness. Extremities: No edema, Capillary Refill Less than 3 Seconds Skin: No rashes, No breakdown Musculoskeletal: No Tenderness to Palpation of Joints or Extremities. No obvi ous tremors. Neurological: Cranial nerves II-XII grossly intact, Deep Tendon Reflexes 2+/4 and Symmetrical, Neuro grossly intact Psych/Mental Status: Flat affect. ABG / Lab / Microbiology Data Result Diagrams: 07/25/20 05:13 07/25/20 05:13 D/C Instructions Discharge Diet: No restrictions Discharge Activity: May Not Drive Meaningful Use Info Meaningful Use Diagnoses (Choose all that apply): None applicable Discharge Plan Admission Admit Date/Time: 07/24/20 19:50 Primary Reason for Your Visit: Acute alcohol withdrawal Attending Provider: Bharat Stevenson Primary Care Provider: Alber Hernandez NP Discharge Orders/Prescriptions Prescriptions: New thiamine HCl (vitamin B1) [Vitamin B-1] 100 mg Tablet 100 mg PO DAILYCM Qty: 30 RF: 0 nicotine 21 mg/24 hr Patch 24 Hour 21 mg transdermal DAILY Qty: 30 RF: 0 folic acid 1 mg Tablet 1 mg PO DAILY@0800 Qty: 30 RF: 0 Continued buspirone 15 mg tablet 15 mg PO QHS Qty: 90 RF: 1 buspirone 30 mg tablet 30 mg PO DAILY Qty: 90 RF: 1 multivitamin Tablet 1 tab PO DAILY RF: 0 Referrals / Follow Up: Alber Hernandez NP, [employer] SPECIALIST-C [Primary Care Provider] - Disposition Disposition (needs filled in before D/C Order can be placed): Home, self care Visit Charges Inpatient E&M: 45474 Disch Hosp
[2020-07-27] MEDS: busPIRone 15 MG TABLET 30 MG PO (09:32)
--- NOTE | 2020-07-27 10:10 | ADDICTION ---
This travel writer met with PT to finalize d/c plans. [facility] to call [facility] upon d/c from [facility] to schedule appointment for assessment update. PT provided resources and noted that he will call immediately following discharge.
--- NOTE | 2020-07-27 10:31 | PHA.DC.MR ---
Pharmacy Service has performed discharge medication reconciliation for this patient. The patient's discharge medication list was reviewed for discrepancies and discrepancies were resolved. Home Medications buspirone 15 mg tablet 15 mg PO QHS #90 tab 03/31/20 buspirone 30 mg tablet 30 mg PO DAILY #90 tab 03/31/20 multivitamin 1 tab PO DAILY 07/24/20 folic acid 1 mg PO DAILY@0800 #30 tab 07/27/20 nicotine 21 mg TRANSDERMAL DAILY #30 ea 07/27/20 thiamine HCl (vitamin B1) [Vitamin B-1] 100 mg PO DAILYCM #30 tab 07/27/20
== END 2020-07-27 10:32 | disposition home or self-care (01) | DRG 897 ==
LOC: ED 15:44 → MS3 17:28
PROVIDERS: Family Medicine; Admitting Provider Student in an Organized Health Care Education/Training Program; Emergency Provider Student in an Organized Health Care Education/Training Program; PCP Nurse Practitioner Family; Visit Provider Internal Medicine
DX: F10.231 Alcohol dependence with withdrawal delirium (principal); F12.20 Cannabis dependence, uncomplicated; K74.60 Unspecified cirrhosis of liver; F32.9 Major depressive disorder, single episode, unspecified; F41.9 Anxiety disorder, unspecified; Z86.2 Personal history of diseases of the blood and blood-forming organs and certain disorders involving the immune mechanism; Z79.899 Other long term (current) drug therapy; F17.200 Nicotine dependence, unspecified, uncomplicated
CPT/HCPCS: 36415; 80053; 80307; 82077; 83690; 83735; 84100; 85025; 97802; 99284; A4216

== ENCOUNTER → 2020-08-05 09:54 | Outpatient (CLI) | payer OTHER, SELFPAY ==
[2020-07-29 15:52] VITALS: BMI 22.5
--- NOTE | 2020-08-05 09:55 | US_ITS ---
STUDY: ABDOMINAL ULTRASOUND - RIGHT UPPER QUADRANT REASON FOR VISIT: Male, 40 years old cirrhosis TECHNIQUE: Ultrasound evaluation of the right upper quadrant was performed with real-time and static goins-scale imaging. TECHNICAL QUALITY: Adequate. COMPARISON: None. FINDINGS: Liver: The liver measures 16.4 cm. There is normal echogenicity of the liver. The bile ducts are within normal limits. There is hepatic color flow. The direction of portal flow is hepatopetal. There is no demonstrated mass lesion. Gallbladder: Normal distended gallbladder. The gallbladder wall measures 2.0 mm. There is a negative sonographic Peralta''s sign. There is no pericholecystic fluid. There are no gallstones. Common Bile Duct (C.B.D.): The common bile duct measures 3 mm. Pancreas: Normal size of the head, body and tail of the pancreas. There is normal echogenicity of the pancreas. There is no demonstrated pancreatic mass or cyst. Right Kidney: Normal size of the right kidney. The right kidney measures 10.6 cm x 4.7 cm x 4.1 cm. Normal renal cortex. The right cortex measures 1 cm. There is no demonstrated renal mass or cyst. There is no right hydronephrosis. US/Liver IMPRESSION: Normal right upper quadrant ultrasound examination. Electronically Signed: Ray Zuñiga MD at 13:35 EDT , Service support ,
== END ==
LOC: US 09:54
PROVIDERS: PCP Nurse Practitioner Family; Referring Provider Nurse Practitioner Family; Visit Provider Nurse Practitioner Family
DX: K74.60 Unspecified cirrhosis of liver (principal)
CPT/HCPCS: 76705

== ENCOUNTER 2020-08-31 16:02 | Emergency (ER) | payer OTHER, SELFPAY ==
[2020-07-29 15:52] VITALS: BMI 22.5
[2020-08-31] VITALS (7 sets, daily range): BP systolic 106–128; BP diastolic 63–94; PULSE 56–108; RESP 14–17; TEMP 37; O2SAT 96–98; BMI 18.6
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
--- NOTE | 2020-08-31 16:42 | EDS_ITS ---
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 Patient states that he found out his was unfaithful to him today. Patient states this caused him to go into a depression. Patient got his gun out and was thinking of shooting himself. Police were contacted and they were able to bring the patient to the emergency department. Patient admits to drinking alcohol today. Patient states he went through alcohol detox recently but started drinking again today. PFSH PFS Medical History Anemia Chronic bronchitis Diarrhea Fatigue Glaucoma Limb weakness Liver cirrhosis Shoulder pain Home Medications buspirone 15 mg tablet 15 mg PO QHS #90 tab 03/31/20 [Rx Last Taken Unknown] buspirone 30 mg tablet 30 mg PO DAILY #90 tab 03/31/20 [Rx Last Taken 07/24/20] multivitamin 1 tab PO DAILY 07/24/20 [History Last Taken 07/24/20] folic acid 1 mg PO DAILY@0800 #30 tab 07/27/20 [Rx Last Taken Unknown] thiamine HCl (vitamin B1) [Vitamin B-1] 100 mg PO DAILYCM #30 tab 07/27/20 [Rx Last Taken Unknown] mirtazapine 15 mg tablet 15 mg PO DAILY 07/29/20 [History Last Taken Unknown] paroxetine HCl 20 mg tablet 20 mg PO DAILY #90 tab 07/29/20 [Rx Last Taken Unknown] Allergy/AdvReac Type Severity Reaction Status Date / Time tramadol Allergy seizures Verified 08/31/20 16:04 aspirin AdvReac Nausea Verified 08/31/20 16:04 NSAIDS (Non-Steroidal AdvReac Upset Verified 08/31/20 16:04 Anti-Inflamma Stomach nicotine patch Allergy Severe Hives Uncoded 08/31/20 16:04 Family History Father Alcoholism Cancer prostate Hypertension COPD (chronic obstructive pulmonary disease) CVA (cerebral vascular accident) Myocardial infarction, Onset Age: 46 Mother COPD (chronic obstructive pulmonary disease) Anxiety Cancer bone blood clots Grandmother Alcoholism Brother Alcoholism Hypertension Asthma younger brother Sister Alcoholism no surgical history Social History Smoking Status: Current every day smoker tobacco type: cigarettes alcohol intake: former year quit: 2020 substance use type: does not use what type of physical activity do you participate in: none ROS ROS ED Constitutional Constitutional ED: Denies chills or fever(s) Eyes Eyes: Denies blurry vision or change in vision ENT ENT ED: Denies rhinorrhea or sore throat Cardiovascular Cardiovascular: Denies chest pain or palpitations Respiratory/Chest Respiratory/Chest: Denies cough or dyspnea Gastrointestinal Gastrointestinal: Denies nausea or vomiting Genitourinary Genitourinary ED: Denies dysuria or hematuria Musculoskeletal Musculoskeletal: Denies back pain or neck pain Integumentary Denies abscess or rash Neurologic Neurologic: Denies headache(s) or weakness Psychiatric Psychiatric: Reports depression and suicidal thoughts Allergic/Immunologic Allergic/Immunologic ED: Denies mouth swelling or urticaria EXAM Physical Exam Const Vital Signs: 08/31/20 16:04 08/31/20 17:33 08/31/20 18:34 Temperature 98.6 F Temperature Source Temporal Pulse Rate 108 H 86 72 Respiratory Rate 14 15 14 Blood Pressure 128/87 H 127/71 H 106/63 Blood Pressure Mean 100 89 77 Pulse Ox 98 97 96 Oxygen Delivery Method Room Air Room Air Room Air 08/31/20 20:53 08/31/20 21:11 08/31/20 22:20 Temperature Temperature Source Pulse Rate 56 L Respiratory Rate 15 17 17 Blood Pressure 123/94 H Blood Pressure Mean 103 Pulse Ox 98 Oxygen Delivery Method Room Air Room Air Room Air 08/31/20 23:20 09/01/20 00:00 Temperature Temperature Source Pulse Rate Respiratory Rate 15 18 Blood Pressure Blood Pressure Mean Pulse Ox Oxygen Delivery Method Room Air Positive well nourished and well developed General Appearance ED: well developed HEENT normocephalic and atraumatic Neck supple and no JVD Resp normal respiratory effort and clear to auscultation bilaterally Cardio no murmurs Rate: regular rate Rhythm: regular rhythm GI non-tender and non-distended Auscultation: normoactive bowel sounds Palpation: soft Extremity normal to inspection General Extremety ED: Negative for edema or tenderness General Extremity: Negative for edema Neuro oriented x3, CN's II-XII intact bilaterally and no sensory deficits noted Sensorium / Orientation: alert Motor Exam: strength 5/5 throughout Psych mental status grossly normal Activity / Motor Behavior: appropriate eye contact Speech: minimal and soft Mood & Affect: depressed and flat affect Thought Content: suicidality Memory / Cognition: memory grossly intact Skin Rashes: no rashes MDM MDM MDM Narrative Medical decision making narrative: Suicide precautions were maintained. CBC was within normal limits. Comprehensive metabolic profile was normal. Serum alcohol level was 284. Urine tox is positive for amphetamines and cannabinoids. COVID-19 rapid antigen was obtained and was negative. Nursing staff reports patient became combative and agitated. Staff reports patient became combative with police and was threatening them. Patient was placed in restraints and was given a dose of Haldol. Patient fell asleep after this. Social work was in to evaluate the patient. Patient will be placed in a psychiatric facility. [place] slip was placed on the chart. Lab Data Attestation: I reviewed the patient's lab results. Labs: Laboratory Results - last 24 hr 08/31/20 08/31/20 08/31/20 16:25 16:25 16:25 WBC 10.2 RBC 4.47 L Hgb 15.2 Hct 43.8 MCV 98.0 H MCH 34.0 H MCHC 34.7 RDW Std Deviation 45.0 H RDW Coeff of Lexie 12.4 Plt Count 320 MPV 10.0 Immature Gran % (Auto) 0.400 Neut % (Auto) 65.5 Lymph % (Auto) 22.9 [place] % (Auto) 5.9 Eos % (Auto) 4.5 Baso % (Auto) 0.8 Absolute Neuts (auto) 6.7 Absolute Lymphs (auto) 2.33 Nucleated RBC % 0 Sodium 140 Potassium 3.7 Chloride 107 Carbon Dioxide 24.0 Anion Gap 9 BUN 9 Creatinine 0.95 Estim Creat Clear Calc 80.53 Est GFR (MDRD) Af Amer 114 Est GFR (MDRD) Non-Af 94 BUN/Creatinine Ratio 9.5 L Glucose 98 Calcium 9.1 Total Bilirubin 0.50 AST 21 ALT 21 Alkaline Phosphatase 94 Total Protein 8.3 H Albumin 4.8 Globulin 3.5 Albumin/Globulin Ratio 1.4 Urine Opiates Screen Urine Methadone Screen Ur Barbiturates Screen Ur Phencyclidine Scrn Ur Amphetamines Screen U Methamphetamin-MDMA U Benzodiazepines Scrn Urine Cocaine Screen U Cannabinoids Screen Ur Drug Screen Comment Ethyl Alcohol 284.0 08/31/20 16:25 WBC RBC Hgb Hct MCV MCH MCHC RDW Std Deviation RDW Coeff of Lexie Plt Count MPV Immature Gran % (Auto) Neut % (Auto) Lymph % (Auto) [place] % (Auto) Eos % (Auto) Baso % (Auto) Absolute Neuts (auto) Absolute Lymphs (auto) Nucleated RBC % Sodium Potassium Chloride Carbon Dioxide Anion Gap BUN Creatinine Estim Creat Clear Calc Est GFR (MDRD) Af Amer Est GFR (MDRD) Non-Af BUN/Creatinine Ratio Glucose Calcium Total Bilirubin AST ALT Alkaline Phosphatase Total Protein Albumin Globulin Albumin/Globulin Ratio Urine Opiates Screen NEGATIVE Urine Methadone Screen NEGATIVE Ur Barbiturates Screen NEGATIVE Ur Phencyclidine Scrn NEGATIVE Ur Amphetamines Screen POSITIVE H U Methamphetamin-MDMA NEGATIVE U Benzodiazepines Scrn NEGATIVE Urine Cocaine Screen NEGATIVE U Cannabinoids Screen POSITIVE H Ur Drug Screen Comment Ethyl Alcohol Discharge Plan Triage Chief Complaint: Suicidal ED Provider: Ramiro Cain Dx/Rx/DC Orders Clinical Impression: Depression Prescriptions: No Action buspirone 15 mg tablet 15 mg PO QHS Qty: 90 RF: 1 buspirone 30 mg tablet 30 mg PO DAILY Qty: 90 RF: 1 mirtazapine [Remeron] 15 mg tablet 15 mg PO DAILY RF: 0 paroxetine HCl [Paxil] 20 mg tablet 20 mg PO DAILY Qty: 90 RF: 1 multivitamin Tablet 1 tab PO DAILY RF: 0 thiamine HCl (vitamin B1) [Vitamin B-1] 100 mg Tablet 100 mg PO DAILYCM Qty: 30 RF: 0 folic acid 1 mg Tablet 1 mg PO DAILY@0800 Qty: 30 RF: 0 Primary Care Provider: Alber Hernandez NP Referrals: Alber Hernandez SHIFT COORDINATOR, SHIFT COORDINATOR-C [Primary Care Provider] - Disposition Disposition: Psychiatric Hospital or Unit Discharge Location: [facility]
[2020-08-31 17:03] LABS: Absolute Lymphocyte Count 2.33 X10^3/uL (0.83-4.51); Absolute Neutrophil Count 6.7 X10^3/uL (2.0-7.7); Basophil# 0.08 X10^3/uL; Basophil% 0.8 % (0-1); Eosinophil# 0.46 X10^3/uL; Eosinophils% 4.5 % (0-5); Hematocrit 43.8 % (40-54); Hemoglobin 15.2 g/dL (13.0-16.5); Lymphocyte # 2.33 X10^3/ul (0.83-4.51); Lymphocyte % 22.9 % (19-41); Mean Corp Hgb Conc 34.7 g/dL (32-36); Monocyte% 5.9 % (0-10); NRBC Flagged by Analyzer 0 % (0-5); Neutrophil # 6.66 X10^3/uL (2.7-7.7); Neutrophil % 65.5 % (47-70); Platelet Count 320 K/mm3 (150-450); RBC Distribution Width CV 12.4 % (11.6-14.6); Red Blood Count 4.47 M/mm3 (4.6-6.2); White Blood Count 10.2 K/mm3 (4.4-11.0)
[2020-08-31 17:13] LABS: ALB/GLOB Ratio 1.4 RATIO (0.9-2.4); AST(SGOT) 21 U/L (15-37); Alanine Aminotransfer ALT/SGPT 21 U/L (16-61); Albumin, Serum 4.8 g/dL (3.2-5.0); Alkaline Phosphatase 94 U/L (45-117); Anion Gap 9 (5-15); BUN 9 mg/dL (7-18); BUN/Creat Ratio 9.5 RATIO (10-20); Calcium,Total 9.1 mg/dL (8.5-10.1); Chloride 107 mmol/L (98-107); Creatinine, Serum 0.95 mg/dL (0.70-1.30); EST Glomerular Filtration Rate 94 mL/min (>60); Est Glom Filt Rate - Afr Amer 114 mL/min (>60); Estimated Creatinine Clearance 80.53 ml/min; Globulin 3.5 g/dL (2.2-4.2); Glucose 98 mg/dL (74-106); Potassium 3.7 mmol/L (3.5-5.1); Protein, Total 8.3 g/dL (6.4-8.2); Sodium Level 140 mmol/L (136-145)
[2020-08-31 17:21] LABS: Amphetamine Urine VISTA POSITIVE (<1000 ng/mL); Barbiturate Urine VISTA NEGATIVE (< 200 ng/mL); Benzodiazepine Urine VISTA NEGATIVE (< 200 ng/mL); Cocaine Urine VISTA NEGATIVE (< 300 ng/mL); Ecstacy Urine VISTA NEGATIVE (< 500 ng/mL); Methadone Urine VISTA NEGATIVE (< 300 ng/mL); PCP Urine VISTA NEGATIVE (< 25 ng/mL); THC Urine VISTA POSITIVE (< 50 ng/mL); Vista UDS pH Range 6
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
[2020-08-31] MEDS: Haloperidol Lactate 5 MG/ML Vial IM (17:32)
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
--- NOTE | 2020-08-31 18:36 | ED.RN ---
PT REMOVED FROM ALL 4 RESTRAINTS AT THIS TIME. PT IS RESTING COMFORTABLY. RN WILL CONTINUE TO MONITOR.
--- NOTE | 2020-08-31 19:08 | CM.ED ---
Addendum entered by Janneth Foster 08/31/20 22:50: LUCIAN received call from Sylvie at [facility]. She reports that patient has been accepted but needs to come to [facility] after 9:00am tomorrow so can leave [facility] between 7-7:30am. Accepting nurse practioner is Kavita Ramirez and patient is going to the Dual Diagnosis unit. RN to RN will be at [phone]. creative/art director and MD updated Janneth WEBER Original Note: LUCIAN Note Patient has been removed from 4 point restraints. Placement was for patient and staff security. LUCIAN called [facility]. They said that they will take patients with AOD issues but the patient has to be through the detox, especially alcohol. LUCIAN called [facility]. They have waiting list for their dual diagnosis program till tomorrow morning. LUCIAN called Zuri at [facility]. She said that they need 6 hours off restraints and said that with the MD quotation checker tonight there is a good chance he would decline patient due to the acuity level. LUCIAN called Grisel at [facility] and they do not take med mutual insurance. LUCIAN called [facility]) Spoke to Lesia who said that they need patient to be 4 hours out of restraints prior to transfer. However, she indicated they could review the paperwork for patient now. LUCIAN faxed referral packet to [facility] for consideration of placement. Plan: To be determined Janneth WEBER
[2020-09-01] VITALS (10 sets, daily range): BP systolic 127–129; BP diastolic 87–95; PULSE 65–72; RESP 12–18; TEMP 36.2; O2SAT 98–100
== END 2020-09-01 08:29 ==
PROVIDERS: Emergency Provider Emergency Medicine; PCP Nurse Practitioner Family
DX: F32.9 Major depressive disorder, single episode, unspecified (principal); R45.851 Suicidal ideations; H40.9 Unspecified glaucoma; K74.60 Unspecified cirrhosis of liver; Z86.2 Personal history of diseases of the blood and blood-forming organs and certain disorders involving the immune mechanism; F17.210 Nicotine dependence, cigarettes, uncomplicated
CPT/HCPCS: 80053; 80307; 82077; 85025; 87426; 96372; 99285

== ENCOUNTER 2021-11-21 18:58 | Emergency (ER) | payer OTHER, SELFPAY ==
[2021-11-21 18:58] VITALS: BP 142/93; PULSE 90; RESP 18; TEMP 36.6; O2SAT 98; BMI 24.3
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
[2021-11-21] MEDS: HYDROcodone Bitartrate/Apap 5/325 Tablet PO (20:12)
== END 2021-11-21 20:14 | disposition home or self-care (01) ==
PROVIDERS: Emergency Provider Emergency Medicine; PCP Nurse Practitioner Family; Visit Provider Emergency Medicine
DX: S22.42XA Multiple fractures of ribs, left side, initial encounter for closed fracture (principal); F17.210 Nicotine dependence, cigarettes, uncomplicated; V86.06XA Driver of dirt bike or motor/cross bike injured in traffic accident, initial encounter
CPT/HCPCS: 71101; 99283